=== PATIENT | female | born 1950 | race Caucasian/White ===

== ENCOUNTER 2020-03-06 18:38 | Emergency (ER) | payer MEDICARE, BC, SELFPAY ==
[2020-03-06 18:39] VITALS: BP 181/100; PULSE 102; RESP 16; TEMP 36.6; O2SAT 96; BMI 31.8
[2020-03-06 20:30] LABS: Absolute Lymphocyte Count 3.29 X10^3/uL (0.83-4.51); Absolute Neutrophil Count 4.9 X10^3/uL (2.0-7.7); Basophil# 0.04 X10^3/uL; Basophil% 0.5 % (0-1); Eosinophil# 0.17 X10^3/uL; Eosinophils% 1.9 % (0-5); Hematocrit 45.3 % (37-47); Hemoglobin 14.8 g/dL (12.0-15.0); Lymphocyte # 3.29 X10^3/ul (4.0); Lymphocyte % 37.3 % (19-41); Mean Corp Hgb Conc 32.7 g/dL (32-36); Mean Corpuscular Hgb 26.9 pg (27.0-32.0); Mean Corpuscular Volume 82.2 fL (81-99); Mean Platelet Vol. 9.9 fl (6.2-12.0); Monocyte# 0.44 X10^3/uL; NRBC Flagged by Analyzer 0 % (0-5); Neutrophil # 4.85 X10^3/uL (2.7-7.7); Neutrophil % 55.1 % (47-70); Platelet Count 275 K/mm3 (150-450); RBC Distribution Width CV 13.5 % (11.6-14.6); RBC Distribution Width SD 39.7 fl (35.1-43.9); Red Blood Count 5.51 M/mm3 (4.2-5.4); White Blood Count 8.8 K/mm3 (4.4-11.0)
[2020-03-06 20:40] LABS: Bacteria 0 SEEN /hpf (None Seen); Mucous, Urine 0 SEEN /hpf (<or=2+); Red Blood Cells-Urine 0 SEEN /hpf (0-5); Squamous Epithelial Cells - UA 0 SEEN /hpf (5-10)
[2020-03-06 20:42] LABS: Color, Urine Straw (Yellow); Glucose, Dipstick Normal (Normal); Ketone-Dipstick Negative (Negative); Leukocyte Esterase-Dipstick 100 /ul (Negative); Nitrite-Dipstick Negative (Negative); Occult Blood-Urine Negative /ul (Negative); Protein-Dipstick Negative (Negative); Urine Bilirubin Dipstick Negative (Negative); Urine Clarity Clear (Clear); Urine Urobilinogen Normal (Normal)
[2020-03-06 20:50] LABS: Anion Gap 4 (5-15); BUN 18 mg/dL (7-18); BUN/Creat Ratio 23.5 RATIO (10-20); Calcium,Total 9.1 mg/dL (8.5-10.1); Chloride 107 mmol/L (98-107); Creatinine, Serum 0.76 mg/dL (0.55-1.02); EST Glomerular Filtration Rate 80 mL/min (>60); Est Glom Filt Rate - Afr Amer 97 mL/min (>60); Estimated Creatinine Clearance 47.14 ml/min; Glucose 103 mg/dL (74-106); Potassium 3.6 mmol/L (3.5-5.1); Sodium Level 140 mmol/L (136-145)
--- NOTE | 2020-03-06 20:56 | CT_ITS ---
STUDY: CT ABDOMEN AND PELVIS WITHOUT CONTRAST REASON FOR EXAM: Female, 69 years old. LEFT LOWER ABD AND FLANK PAIN,HX [place] WITH REMOVAL IN PAST RADIATION DOSAGE (If Supplied By Facility): CTDIvol = ( 15.52 ) mGy, DLP = ( 779.26 ) mGycm TECHNIQUE: Transaxial images were obtained from the dome of the diaphragm to the symphysis pubis without oral contrast, and without intravenous contrast. Sagittal and coronal images were reconstructed. Individualized dose optimization techniques were used for this CT. COMPARISON: 03-03-16 FINDINGS: There is minor interstitial thickening in both lower lobes. The visualized portions of the heart are within normal limits. Moderate size hiatal hernia is noted Normal liver. Normal gallbladder and extrahepatic biliary system. Normal spleen. Normal pancreas. Normal bilateral adrenal glands. Normal right kidney. There is left renal pelvocaliectasis and hydroureter without evidence for ureteral calculus. This could be due to recent passage of a stone or mild ureterovesical reflux. Normal visualized stomach. Normal small intestine. Minor diverticular disease of the sigmoid colon without evidence for acute diverticulitis.. No evidence for acute appendicitis. Atherosclerotic changes of the aorta without evidence for aneurysm. Normal inferior vena cava. Normal retroperitoneum. Normal urinary bladder. Uterus is deviated towards the right. Postsurgical changes status post tubal ligation. Tiny fat-containing umbilical hernia.. Lumbar spine demonstrates degenerative changes CT/Abdomen/Pelvis without Cont IMPRESSION: Mild left renal pelvocaliectasis and hydroureter without evidence for clot in calculus possibly due to recent passage of a stone or ureterovesical reflux.. Minor diverticular changes of the sigmoid colon without evidence for acute diverticulitis. Other findings as above Electronically Signed: Dennis Inman MD at 21:29 EDT , Service support ,
[2020-03-06 20:58] LABS: White Blood Cells 0-5 SEEN /hpf (0-5)
[2020-03-06] MEDS: Ondansetron 4 MG/2 ML Vial IV (21:48)
[2020-03-06] MEDS: Ketorolac 30 MG/ML Syringe IV (21:48)
--- NOTE | 2020-03-06 22:27 | ED.VIS.GEN ---
History of Present Illness Chief Complaint: Abd Pain Informant: Patient Narrative: She presents with a left mid abdominal pain. States is very similar to when she has had kidney stones in the past. She has required lithotripsy and ureteral stents with Dr. Mtz. The patient states the pain became pretty significant today. She denies any hematuria. No bowel changes. No fevers. Past Medical History - Allergies and Home Meds Allergies/Adverse Reactions: Allergies erythromycin base Adverse Reaction (Verified 03/06/20 18:41) Diarrhea Primary Care Physician: Brendon Nguyen MD [STAFF PHYSICIAN] - Smoking Status: Former smoker Review of Systems General: Denies: Chills, Fever, Sweats Eyes: Denies: Visual changes - bilaterally, Diplopia ENT: Denies: Rhinorrhea, Sore throat Cardiovascular: Denies: Chest pain, Palpitations Respiratory: Denies: Dyspnea, Cough, Dyspnea on exertion Gastrointestinal: Reports: Abdominal pain. Denies: Nausea, Vomiting, Diarrhea, Melena, Hematochezia Genitourinary: Denies: Dysuria, Hematuria, Frequency Musculoskeletal: Denies: Back pain, Extremity Pain Skin: Denies: Rash, Wounds Neurological: Denies: Headache, Weakness, Numbness Physical Exam Vital Signs/Narrative: Vital Signs Temp Pulse Resp BP Pulse Ox 03/06/20 18:39 97.9 F 102 H 16 181/100 H 96 Inital Vital Signs reviewed: Yes General: Well nourished, Well developed, No Acute Distress Head: Normocephalic, Atraumatic Eyes: Perrl, EOMI ENT: Moist mucous membranes, No rhinorrhea Neck: Supple, Nontender Cardiovascular: Regular rate, Regular rhythm, No murmurs Respiratory: No distress, CTA bilaterally, Chest nontender Abdomen: Soft, Nontender, Nondistended, Normal bowel sounds Back: Nontender, Normal Inspection Extremities: Nontender, No edema Skin: Normal color, No rash Neurological: Alert, Oriented x3, Cranial nerves II-XII grossly intact, Normal Strength, Normal Sensation Psychological: Normal affect, Normal Mood Diagnostic/Tx/Re-eval Clinical Impression(s) from Imaging Studies Abdomen/Pelvis CT 03/06/20 20:56 IMPRESSION: Mild left renal pelvocaliectasis and hydroureter without evidence for clot in calculus possibly due to recent passage of a stone or ureterovesical reflux.. Minor diverticular changes of the sigmoid colon without evidence for acute diverticulitis. Other findings as above Electronically Signed: Dennis Inman MD at 21:29 EDT , Service support , Laboratory Last Values WBC 8.8 K/mm3 (4.4-11.0) 03/06/20 20: RBC 5.51 M/mm3 (4.2-5.4) H 03/06/20 20: Hgb 14.8 g/dL (12.0-15.0) 03/06/20 20: Hct 45.3 % (37-47) 03/06/20: MCV 82.2 fL (81-99) 03/06/20: MCH 26.9 pg (27.0-32.0) L 03/06/20: MCHC 32.7 g/dL (32-36) 03/06/20: RDW Std Deviation 39.7 fl (35.1-43.9) 03/06/20: RDW Coeff of Nasrin 13.5 % (11.6-14.6) 03/06/20: Plt Count 275 K/mm3 (150-450) 03/06/20: MPV 9.9 fl (6.2-12.0) 03/06/20 20: Immature Gran % (Auto) 0.200 % (0.0-0.9) 03/06/20: Neut % (Auto) 55.1 % (47-70) 03/06/20 20: Lymph % (Auto) 37.3 % (19-41) 03/06/20: [place] % (Auto) 5.0 % (0-10) 03/06/20: Eos % (Auto) 1.9 % (0-5) 03/06/20: Baso % (Auto) 0.5 % (0-1) 03/06/20 20: Absolute Neuts (auto) 4.9 X10^3/uL (2.0-7.7) 03/06/20 20: Absolute Lymphs (auto) 3.29 X10^3/uL (0.83-4.51) 03/06/20 20: Nucleated RBC % 0 % (0-5) 03/06/20 20: Sodium 140 mmol/L (136-145) 03/06/20 20: Potassium 3.6 mmol/L (3.5-5.1) 03/06/20 20: Chloride 107 mmol/L (98-107) 03/06/20 20: Carbon Dioxide 29.0 mmol/L (21.0-32.0) 03/06/20 20: Anion Gap 4 (5-15) L 03/06/20 20: BUN 18 mg/dL (7-18) 03/06/20: Creatinine 0.76 mg/dL (0.55-1.02) 03/06/20 20: Estim Creat Clear Calc 47.14 ml/min 03/06/20 20: Est GFR (MDRD) Af Amer 97 mL/min (>60) 03/06/20 20: Est GFR (MDRD) Non-Af 80 mL/min (>60) 03/06/20 20: BUN/Creatinine Ratio 23.5 RATIO (10-20) H 03/06/20 20: Glucose 103 mg/dL (74-106) 03/06/20: Calcium 9.1 mg/dL (8.5-10.1) 03/06/20 20: Urine Color Straw (Yellow) 03/06/20 20: Urine Clarity Clear (Clear) 03/06/20: Urine pH 6.0 (5.0 - 8.0) 03/06/20: Ur Specific [place] 1.010 (1.002-1.030) 03/06/20 20: Urine Protein Negative mg/dl (Negative) 03/06/20 Urine Glucose (UA) Normal mg/dl (Normal) 03/06/20 Urine Ketones Negative mg/dl (Negative) 03/06/20 20: Urine Occult Blood Negative /ul (Negative) 03/06/20 20: Urine Nitrite Negative (Negative) 03/06/20: Urine Bilirubin Negative mg/dL (Negative) 03/06/20 Urine Urobilinogen Normal mg/dl (Normal) 03/06/20 20:27 Ur Leukocyte Esterase 100 /ul (Negative) H 03/06/20 20:27 Urine RBC 0 SEEN /hpf (0-5) 03/06/20 20:27 Urine WBC 0-5 SEEN /hpf (0-5) 03/06/20 20:27 Ur Squamous Epith Cells 0 SEEN /hpf (5-10) 03/06/20 20:27 Urine Bacteria 0 SEEN /hpf (None Seen) 03/06/20 20:27 Urine Mucus 0 SEEN /hpf (<or=2+) 03/06/20 20:27 - Medical Decision Making There is evidence of hydro-nephrosis and hydroureter on the left. We talked about possible etiologies of this including a recently passed stone as well as ureteral stricture. I will refer the patient have pain medication. She received a dose of Toradol here and does not wish to have her prescriptions filled in the hospital. Patient to follow-up with urology if not improving ED Disposition - Plan for ED Patient: Disposition: Home or Assisted Living Diagnosis: Hydronephrosis, Left sided abdominal pain Instructions: ED RENAL STONE Passed Prescriptions: Hydrocodone Bitart/Apap 5-325 [[place] 5MG-325MG] 1 tab PO Q6H PRN PRN 3 Days #12 tab PRN Reason: Pain Transmission Status: Received by ELOY CRUZ RD Ondansetron [Zofran Odt] 4 mg PO Q8H PRN PRN #10 tab PRN Reason: Nausea Transmission Status: Received by ELOY CRUZ RD Referrals: Brendon Nguyen MD [STAFF PHYSICIAN] -
[2020-03-06 22:59] VITALS: BP 145/75; PULSE 87; RESP 17; O2SAT 97
== END 2020-03-06 23:00 | disposition home or self-care (01) ==
PROVIDERS: Emergency Provider Emergency Medicine; PCP Family Medicine
DX: N13.30 Unspecified hydronephrosis (principal); R10.9 Unspecified abdominal pain; Z87.442 Personal history of urinary calculi; Z87.891 Personal history of nicotine dependence
CPT/HCPCS: 74176; 80048; 81001; 85025; 96374; 96375; 99283; A4216; J2405

== ENCOUNTER → 2020-04-11 13:43 | Outpatient (CLI) | payer MEDICARE, BC, SELFPAY ==
--- NOTE | 2020-04-11 13:44 | US_ITS ---
STUDY: RENAL ULTRASOUND - COMPLETE REASON FOR EXAM: Female, 69 years old. Left hydro , kidney stones TECHNIQUE: Ultrasound evaluation of the kidneys was performed with real-time and static maurer-scale imaging. COMPARISON: None. FINDINGS: RIGHT KIDNEY: Normal location of the right kidney, which is normal in size. The right kidney measures 11.1 cm x 4.7 cm x 5.2 cm. There is a normal cortex of the right kidney. The renal cortex measures 1.1 cm. There is no right renal mass or cyst. There are no right renal calculi. There is no right hydronephrosis. DISTAL RIGHT URETER: There is non-visualization of the distal right ureter. There is no demonstrated right ureterovesical junction calculus. There is a visualized right ureteral jet. LEFT KIDNEY: Normal location of the left kidney, which is normal in size. The left kidney measures 11.9 cm x 5 cm x 6 cm. There is a normal cortex of the left kidney. The renal cortex measures 1.5 cm. There is evidence of a left pararenal cysts. The largest measures 1.5 sinus by 1.2 cm x 0.9 cm. There are no left renal calculi. There is no left hydronephrosis. DISTAL LEFT URETER: There is non-visualization of the distal left ureter. There is no demonstrated left ureterovesical junction calculus. There is a visualized left ureteral jet. BLADDER: The distended urinary bladder has a volume of 286 ml. There is a normal wall thickness of the distended urinary bladder. There is no demonstrated mass within the urinary bladder. There are no demonstrated bladder calculi. US/Kidney and Bladder IMPRESSION: Small left parapelvic renal cysts.. Electronically Signed: Rustam Pritchard, at 14:42 EDT , Service support ,
== END ==
PROVIDERS: PCP Family Medicine; Referring Provider Urology; Visit Provider Urology
DX: N13.30 Unspecified hydronephrosis (principal); N20.0 Calculus of kidney
CPT/HCPCS: 76770

== ENCOUNTER 2020-05-31 15:02 | Emergency (ER) | payer MEDICARE, BC, SELFPAY ==
[2020-05-31 15:05] VITALS: BP 158/120; PULSE 109; RESP 16; TEMP 36.1; O2SAT 96; BMI 31.7
[2020-05-31 15:07] VITALS: BMI 32.3
--- NOTE | 2020-05-31 16:16 | EKG12_ITS ---
Test Reason : Blood Pressure : / mmHG Vent. Rate : 088 BPM Atrial Rate : 088 BPM P-R Int : 120 ms QRS Dur : 082 ms QT Int : 356 ms P-R-T Axes : 028 045 053 degrees QTc Int : 430 ms Normal sinus rhythm Normal ECG Confirmed by KIM DANIEL, JADE ([id number]), news editor FABRICE ALVAREZ ([id number]) on 06/05/2020 12:28:22 PM Referred By: PC Confirmed By:JADE ALVAREZ MD
--- NOTE | 2020-05-31 16:16 | CT_ITS ---
STUDY: CT BRAIN WITHOUT CONTRAST REASON FOR EXAM: Female, 69 years old. SENT BY EYE DR FOR POSSIBLE TIA, VISION LOSS IN BOTH EYES, LEFT HEMISPHERE RADIATION DOSAGE (If Supplied By Facility): CTDIvol = ( 44.99 ) mGy, DLP = ( 779.24 ) mGycm TECHNIQUE: Transaxial CT imaging of the brain was performed without administration of intravenous contrast material. Individualized dose optimization techniques were used for this CT. COMPARISON: No relevant priors. FINDINGS: Normal soft tissue structures. Normal calvarium. Normal size ventricles and extra-axial spaces for the patient''s age. Normal white matter tracts of the cerebral hemispheres. Normal basal ganglia and thalami. Normal brainstem. Normal cerebellum. There is no intracranial hemorrhage. There are no findings of an acute ischemic infarction. Normal visualized paranasal sinuses. CT/Brain/Head without Contrast IMPRESSION: Normal unenhanced CT scan of the brain. Electronically Signed: Sean Garcia MD at 17:05 EDT Tel , Service support ,
--- NOTE | 2020-05-31 16:18 | ED.VISSUMM ---
- ER Visit Summary Date of Service: 05/31/20 Chief Complaint: Visual field loss History of Present Illness: The patient is a 69 F who presents with an episode of loss of half of her vision that occurred yesterday. Patient states she was watching TV when the left half of her vision went black. Patient states she was unable to see anything on the left half of her vision out of both eyes. Patient states this lasted approximate 10 to 15 minutes and then resolved. Patient saw her technology education instructor who felt that it was a neurologic problem and not an ophthalmologic problem. Patient states that her technology education instructor called her primary care physician to arrange for follow-up care. Patient states her primary care physician did not call her today and when she called his office he was out of the office for the day. Patient then came to the emergency department for further evaluation. Physical Examination: Vital signs are stable except for an elevated blood pressure of 150/120 and a mild tachycardia of 109. Patient is afebrile. Patient is in no acute distress. Pupils are equal, round, and reactive to light bilaterally. Extraocular muscles are intact. Oral mucosa is pink and moist. Neck is supple. Trachea is midline. There is no JVD noted. Heart was regular rate and rhythm. Lungs are clear and equal bilaterally. Abdomen is soft. Bowel sounds are normal. There is no tenderness. There is no rebound or guarding noted. Skin is warm dry. Cranial nerves II through XII are intact. There are no focal motor or sensory deficits noted. Extremities are intact. There is no calf tenderness or edema. Test Results: EKG shows a normal sinus rhythm with a rate of 88. There are no acute ST or T wave changes. CBC and comprehensive metabolic profile were essentially within normal limits. PT with INR and PTT were normal. Urinalysis does not show any evidence of urinary tract infection. Portable chest x-ray was obtained. There is no acute cardiopulmonary process. CT scan of the brain was obtained. There is no acute intracranial abnormality. These were interpreted by the radiologist and reviewed by myself. Emergency Department Course and Treatment: Patient remained asymptomatic during her emergency department stay. Patient was advised of her findings. Patient was instructed to follow-up with her primary care physician in 3 to 5 days. Patient understood and was agreeable with the plan. All questions were answered. Disposition: Discharge home Impression: 1. Transient ischemic attack This note was generated with AquaMost[employer] software. It may contain incorrect words, spelling, and punctuation that were not noted in review of the chart prior to signing ED Disposition - Plan for ED Patient: Disposition: Home or Assisted Living Diagnosis: TIA (transient ischemic attack) Instructions: ED TRANSIENT ISCHEMIC ATTACK Referrals: Naren Ruffin III, MD [Primary Care Provider] - 3-5 Days Additional Instructions: Continue to take aspirin daily until you follow-up with your primary care physician
--- NOTE | 2020-05-31 16:26 | RAD_ITS ---
STUDY: X-RAY CHEST REASON FOR EXAM: Female, 69 years old. POSSIBLE TIA. LOSS OF VISION FOR 10-15 MINUTES. TECHNIQUE: Single AP portable view of the chest. COMPARISON: None. FINDINGS: The lungs are clear and expanded. There is no demonstrated pleural abnormality. Normal size heart. Normal mediastinum and thai. Normal visualized pulmonary arteries. Normal visualized aortic arch and descending thoracic aorta. Normal visualized thoracic spine. Normal visualized ribs, clavicles, and shoulders. There is no demonstrated abnormality of the visualized soft tissue structures of the upper abdomen. RAD/Chest 1 View (Portable) IMPRESSION: Normal x-ray examination of the chest. Electronically Signed: Sean Garcia MD at 16:43 EDT Tel , Service support ,
[2020-05-31 16:38] LABS: Absolute Lymphocyte Count 2.23 X10^3/uL (0.83-4.51); Absolute Neutrophil Count 5.2 X10^3/uL (2.0-7.7); Basophil# 0.07 X10^3/uL; Basophil% 0.9 % (0-1); Eosinophil# 0.12 X10^3/uL; Eosinophils% 1.5 % (0-5); Hematocrit 44.8 % (37-47); Hemoglobin 14.7 g/dL (12.0-15.0); Lymphocyte # 2.23 X10^3/ul (4.0); Lymphocyte % 27.8 % (19-41); Mean Corp Hgb Conc 32.8 g/dL (32-36); Mean Corpuscular Volume 82.2 fL (81-99); Mean Platelet Vol. 10.3 fl (6.2-12.0); Monocyte# 0.41 X10^3/uL; Monocyte% 5.1 % (0-10); NRBC Flagged by Analyzer 0 % (0-5); Neutrophil # 5.16 X10^3/uL (2.7-7.7); Neutrophil % 64.5 % (47-70); Platelet Count 284 K/mm3 (150-450); RBC Distribution Width CV 13.4 % (11.6-14.6); RBC Distribution Width SD 39.2 fl (35.1-43.9); Red Blood Count 5.45 M/mm3 (4.2-5.4)
[2020-05-31 16:47] LABS: Bacteria 0 SEEN /hpf (None Seen); Mucous, Urine 0 SEEN /hpf (<or=2+); Red Blood Cells-Urine 0 SEEN /hpf (0-5); Squamous Epithelial Cells - UA 0 SEEN /hpf (5-10)
[2020-05-31 16:51] LABS: ALB/GLOB Ratio 1.2 RATIO (0.9-2.4); AST(SGOT) 21 U/L (15-37); Alanine Aminotransfer ALT/SGPT 36 U/L (13-56); Albumin, Serum 4.2 g/dL (3.2-5.0); Alkaline Phosphatase 84 U/L (45-117); Anion Gap 4 (5-15); BUN 21 mg/dL (7-18); BUN/Creat Ratio 18.4 RATIO (10-20); Calcium,Total 9.2 mg/dL (8.5-10.1); Chloride 107 mmol/L (98-107); Creatinine, Serum 1.14 mg/dL (0.55-1.02); EST Glomerular Filtration Rate 51 mL/min (>60); Est Glom Filt Rate - Afr Amer 61 mL/min (>60); Estimated Creatinine Clearance 41.35 ml/min; Globulin 3.5 g/dL (2.2-4.2); Glucose 128 mg/dL (74-106); International Normalized Ratio 0.9; Protein, Total 7.7 g/dL (6.4-8.2); Prothrombin Time (Protime)PT. 11.7 SECONDS (11.7-14.9); Sodium Level 141 mmol/L (136-145)
[2020-05-31 16:52] LABS: Partial Thromboplast Time 24.8 Seconds (24.1-36.2)
[2020-05-31 16:54] LABS: Color, Urine Yellow (Yellow); Glucose, Dipstick Normal (Normal); Ketone-Dipstick Negative (Negative); Leukocyte Esterase-Dipstick 25 /ul (Negative); Nitrite-Dipstick Negative (Negative); Occult Blood-Urine Negative /ul (Negative); Protein-Dipstick Negative (Negative); Urine Bilirubin Dipstick Negative (Negative); Urine Clarity Clear (Clear); Urine Urobilinogen Normal (Normal)
[2020-05-31 17:02] VITALS: BP 164/83; PULSE 90; RESP 19; O2SAT 95
[2020-05-31 17:03] LABS: White Blood Cells 0-5 SEEN /hpf (0-5)
[2020-05-31 18:16] VITALS: BP 148/75; PULSE 71; RESP 16; O2SAT 97
== END 2020-05-31 18:17 | disposition home or self-care (01) ==
PROVIDERS: Emergency Provider Emergency Medicine; PCP Family Medicine
DX: G45.9 Transient cerebral ischemic attack, unspecified (principal)
CPT/HCPCS: 70450; 71045; 80053; 81001; 84484; 85025; 85610; 85730; 93005; 99283; A4216

== ENCOUNTER 2020-10-12 09:32 | Outpatient (RCR) | payer MEDICARE, BC, SELFPAY ==
[2020-10-12] MEDS: COVID-19 VACC, MRNA(PFIZER)/PF 30 MCG/0.3 ML SYRINGE IM (18:46)
[2020-11-02] MEDS: COVID-19 VACC, MRNA(PFIZER)/PF 30 MCG/0.3 ML SYRINGE IM (18:16)
== END 2021-01-16 23:59 ==
LOC: IMMUN 09:32
PROVIDERS: PCP Family Medicine; Visit Provider Family Medicine
DX: Z23 Encounter for immunization (principal)
CPT/HCPCS: 0001A; 0002A; 91300

== ENCOUNTER → 2021-04-13 12:26 | Outpatient (CLI) | payer MEDICARE, BC, SELFPAY ==
--- NOTE | 2021-04-13 12:33 | RAD_ITS ---
INDICATION: KIDNEY CALC EXAMINATION/TECHNIQUE: X-RAY - XR Abdomen 1 View COMPARISON: None FINDINGS: BOWEL GAS PATTERN: Non-obstructive. No bowel or stomach distention. Scattered stool visualized in the bowel. FREE AIR: Not assessed on a single supine view. ORGANOMEGALY: Not seen. CALCIFICATIONS: No abnormal calcifications observed. Stool filled loops of bowel superimposed over the renal beds Limited evaluation. LOWER CHEST: No acute pathology. BONES AND SOFT TISSUES: No acute pathology. RAD/Abdomen Single View IMPRESSION: Limited evaluation, no calcifications visualized. Non-obstructive bowel gas pattern. Electronically Signed: Eliseo Hodges MD at 14:02 EDT Tel , Service support ,
== END ==
PROVIDERS: PCP Family Medicine; Referring Provider Urology; Visit Provider Urology
DX: N20.0 Calculus of kidney (principal)
CPT/HCPCS: 74018

== ENCOUNTER → 2022-04-22 | Outpatient (CLI) | payer MEDICARE, BC, SELFPAY ==
--- NOTE | 2022-05-14 08:43 | PFT_ITS ---
INTRODUCTION: The patient is a 71-year-old female who presents for pulmonary function studies secondary to a diagnosis of cough. Respiratory therapy reported good patient effort. Bronchodilators were used during testing. INTERPRETATION: Forced expiration spirometry demonstrates no evidence of a large airways obstructive ventilatory defect. There was no significant response to aero solized bronchodilators. Spirograms are of good quality and plateau normally. The respiratory flow volume loop is normal. Body plethysmography was performed and revealed a decreased TLC to 3.96 L, 80% of predicted, indicative of a mild restrictive ventilatory impairment. Diffusing capacity by single breath CO is within normal limits. IMPRESSION: Mild restrictive ventilatory impairment with preserved diffusing capacity. No significant bronchodilator response was noted.
== END | disposition home or self-care (01) ==
LOC: PSN 06:44
PROVIDERS: PCP Family Medicine; Referring Provider Family Medicine; Visit Provider Family Medicine
DX: R05.3 Chronic cough (principal)
CPT/HCPCS: 94060; 94726; 94729

== ENCOUNTER → 2022-05-01 | Outpatient (CLI) | payer MEDICARE, BC, SELFPAY ==
--- NOTE | 2022-05-01 13:45 | ECHOCS_ITS ---
Reason For Study: DYSPNEA Procedure This was a 2D Doppler, Color Flow transthoracic echocardiogram. The study was technically difficult. Contrast injection was performed. Exam performed in department. Left Ventricle Normal LV size. Left ventricular systolic function is normal. The estimated ejection fraction is 65 %. No evidence for diastolic dysfunction. No regional wall motion abnormalities noted. Right Ventricle Normal RV size. Normal systolic function. Atria Normal left atrium. Normal right atrium. No doppler evidence for ASD. Bubble contrast study negative for right to left interatrial shunt. Mitral Valve There is no mitral annular calcification. Normal mitral valve. Trivial mitral valve insufficiency. Tricuspid Valve Normal tricuspid valve. Trivial tricuspid valve insufficiency. Right ventricular systolic pressure estimated to be 25 mmHg. Aortic Valve Trisinus/trileaflet aortic valve. Mild focal aortic valve calcification. Pulmonic Valve The pulmonic valve is not well visualized. Trivial pulmonic valve insufficiency. Great Vessels Normal sized aortic root. Pericardium/Pleural No pericardial effusion. Medication 22 gauge I.V. with prn adaptor inserted into right arm. Diluted definity 4ml given slow IV push to enhance endocardial definition. Performed a rapid injection of agitated mix of 9 cc saline and 1cc air to assess for atrial septal defect. MMode/2D Measurements & Calculations LVIDd: 4.0 cm IVSd: 0.69 cm Ao root diam: 3.2 cm LVIDs: 2.6 cm LVPWd: 0.78 cm RVDd: 2.9 cm FS: 34.4 % LAV(MOD-bp): 31.2 ml LVAd ap4: 20.9 cm2 SV(MOD-sp4): 33.5 ml LAV(MOD-bp) Indexed: 16.5 ml/m2 LVLd ap4: 6.4 cm LAV(MOD-sp2): 28.6 ml EDV(MOD-sp4): 54.6 ml LAV(MOD-sp4): 28.8 ml EDV(sp4-el): 57.8 ml LVAs ap4: 11.2 cm2 LVLs ap4: 5.1 cm ESV(MOD-sp4): 21.2 ml ESV(sp4-el): 20.6 ml EF(MOD-sp4): 61.2 % EF(sp4-el): 64.3 % SV(sp4-el): 37.2 ml LA A4 area: 12.1 cm2 LA dimension(2D): 2.7 cm RA A4 area: 11.1 cm2 Time Measurements MV dec time: 0.23 sec Doppler Measurements & Calculations MV E max booker: 80.2 cm/sec Lat Peak E' Booker: 7.3 cm/sec Med Peak E' Booker: 6.0 cm/sec MV A max booker: 106.1 cm/sec E/E' lat: 11.0 E/E' med: 13.3 MV E/A: 0.76 Ao V2 max: 115.8 cm/sec LV V1 max: 103.5 cm/sec PA V2 max: 67.2 cm/sec Ao max P.4 mmHg LV V1 max P.3 mmHg TR max booker: 234.4 cm/sec TR max P.0 mmHg ECHO/Echo Complete W/ Contrast Interpretation Summary The study was technically difficult. Contrast injection was performed. Left ventricular systolic function is normal. The estimated ejection fraction is 65 %. Trivial mitral valve insufficiency. Trivial tricuspid valve insufficiency. Mild focal aortic valve calcification. Trivial pulmonic valve insufficiency. Right ventricular systolic pressure estimated to be 25 mmHg. No evidence for diastolic dysfunction. Ordering Physician: Sofia Santos Referring Physician: Sofia Santos Performed By: Patti Guajardo RDCS
== END | disposition home or self-care (01) ==
LOC: CVS 13:44
PROVIDERS: PCP Family Medicine; Referring Provider Family Medicine; Visit Provider Family Medicine
DX: R06.09 Other forms of dyspnea (principal)
CPT/HCPCS: 93306; Q9957; A4216; C8929

== ENCOUNTER → 2022-06-20 | Outpatient (CLI) | payer MEDICARE, BC, SELFPAY ==
[2022-06-20 12:43] LABS: Absolute Lymphocyte Count 2.18 X10^3/uL (0.83-4.51); Basophil# 0.05 X10^3/uL; Basophil% 0.7 % (0-1); Eosinophil# 0.15 X10^3/uL; Eosinophils% 2.2 % (0-5); Hematocrit 43.6 % (37-47); Hemoglobin 13.6 g/dL (12.0-15.0); Lymphocyte # 2.18 X10^3/ul (0.83-4.51); Mean Corp Hgb Conc 31.2 g/dL (32-36); Mean Corpuscular Hgb 25.6 pg (27.0-32.0); Mean Corpuscular Volume 82.1 fL (81-99); Mean Platelet Vol. 10.8 fl (6.2-12.0); Monocyte# 0.39 X10^3/uL; Monocyte% 5.7 % (0-10); NRBC Flagged by Analyzer 0 % (0-5); Neutrophil # 4.02 X10^3/uL (2.7-7.7); Neutrophil % 59.1 % (47-70); Platelet Count 257 K/mm3 (150-450); RBC Distribution Width CV 14.6 % (11.6-14.6); RBC Distribution Width SD 43.1 fl (35.1-43.9); Red Blood Count 5.31 M/mm3 (4.2-5.4); White Blood Count 6.8 K/mm3 (4.4-11.0)
[2022-06-20 13:16] LABS: ALB/GLOB Ratio 1.2 RATIO (0.9-2.4); AST(SGOT) 28 U/L (15-37); Alanine Aminotransfer ALT/SGPT 69 U/L (13-56); Albumin, Serum 4.1 g/dL (3.2-5.0); Alkaline Phosphatase 82 U/L (45-117); Anion Gap 6 (5-15); BUN 16 mg/dL (7-18); BUN/Creat Ratio 19.3 RATIO (10-20); Chloride 107 mmol/L (98-107); Cholesterol 188 mg/dL (200); Creatinine, Serum 0.83 mg/dL (0.55-1.02); EST Glomerular Filtration Rate 73 mL/min (>60); Est Glom Filt Rate - Afr Amer 88 mL/min (>60); Globulin 3.5 g/dL (2.2-4.2); Glucose 111 mg/dL (74-106); High Density Lipoprotein 53 mg/dL; Potassium 3.8 mmol/L (3.5-5.1); Protein, Total 7.6 g/dL (6.4-8.2); Sodium Level 141 mmol/L (136-145); Triglycerides 146 mg/dL; Very Low Density Lipoprotein 29 mg/dL (5-40); Vitamin D,25 Hydroxy 24.7 ng/mL
[2022-06-20 13:22] LABS: Hemoglobin A1c 6.1 % (3.8-5.6)
== END | disposition home or self-care (01) ==
LOC: BFHLAB 09:38
PROVIDERS: PCP Family Medicine; Visit Provider Family Medicine
DX: Z00.00 Encounter for general adult medical examination without abnormal findings (principal); R73.03 Prediabetes; E78.5 Hyperlipidemia, unspecified; I10 Essential (primary) hypertension; M85.80 Other specified disorders of bone density and structure, unspecified site; E55.9 Vitamin D deficiency, unspecified
CPT/HCPCS: 36415; 80053; 80061; 82306; 83036; 85025

== ENCOUNTER → 2022-07-02 | Outpatient (CLI) | payer MEDICARE, BC, SELFPAY ==
--- NOTE | 2022-07-02 07:09 | BI_ITS ---
MAMMOGRAPHY - BILATERAL SCREENING REASON FOR EXAM: Female, 71 years old. Routine annual screening examination. PERTINENT HISTORY: Non-contributory. TECHNIQUE: Digital bilateral breast igor (3D mammographic acquisition) in the CC and MLO projections. 2-D mediolateral oblique (MLO) and craniocaudad (CC) views of both breasts were obtained. CAD: Full Field Digital Mammography with Computer Added Detection was performed. COMPARISON: Mammogram from outside hospital from 08/18/2020, 10/02/2017. FINDINGS: Breast Composition: There are scattered areas of fibroglandular density. There are no dominant masses or suspicious calcifications. Stable small benign-appearing bilateral axillary lymph nodes. No other significant abnormalities are identified. There has been no significant change since the prior study. BI/SCRN MAMM (CAD)W/IGOR BILAT IMPRESSION: Stable bilateral screening mammogram. Yearly follow-up mammogram recommended. (A) ASSESSMENT CATEGORY: BIRADS Category 2: Benign. A letter regarding these results will be sent to the patient by the facility within 30 days. Approximately 10% of breast cancers are not detected by mammography. A normal mammogram should not delay biopsy of a clinically suspicious abnormality. Electronically Signed: Dez Navarrete, at 16:36 EST ,
== END | disposition home or self-care (01) ==
LOC: OPBI 07:07
PROVIDERS: PCP Family Medicine; Visit Provider Family Medicine
DX: Z12.31 Encounter for screening mammogram for malignant neoplasm of breast (principal)
CPT/HCPCS: 77063; 77067

== ENCOUNTER → 2023-02-25 | Outpatient (CLI) | payer MEDICARE, BC, SELFPAY ==
--- NOTE | 2023-02-25 07:50 | US_ITS ---
INDICATION: RUQ PAIN/EPIGASTRIC PAIN/BLOATING/NAUSEA/HEARTBURN EXAMINATION: Ultrasound US Abdomen Limited (quadrant) TECHNIQUE: Constantino scale and color doppler imaging was performed of the right upper quadrant. COMPARISON: To AP supine plain film views of the abdomen and pelvis April 13, 2021; CT abdomen and pelvis without contrast March 06, 2020 FINDINGS: LIVER: There is normal echotexture. Liver size 16.6 cm. No focal hepatic lesion. There is no free fluid. GALLBLADDER AND BILIARY TREE: No shadowing gallstone, pericholecystic fluid or gallbladder wall thickening is demonstrated. The proximal common bile duct measures 6.2 mm, which is within normal limits for the patient''s age. Sonographic Laird''s sign: Negative. PANCREAS: No focal abnormality is demonstrated in the pancreas. No pancreatic ductal dilatation. RIGHT KIDNEY: 11.42 x 4.79 x 5.50 cm. Cortical thickness is 1.23 cm. No hydronephrosis. A few well-defined, rounded, hypoechoic cysts are seen in the sinus fat at the mid to lower pole. These measure 1.0 x 0.9 x 0.9 cm, 1.3 x 0.9 x 1.1 cm, and 1.2 x 1.3 x 1.0 cm. US/Abdomen Limited IMPRESSION: No acute sonographic abnormality is demonstrated in the right upper quadrant. Incidental note of 3 small simple appearing cysts in the lower pole of the right kidney. Electronically Signed: Julio Greco MD at 8:59 EDT Reading Location ID and State: [id number] / Unknown , Service support ,
== END | disposition home or self-care (01) ==
LOC: US 07:44
PROVIDERS: PCP Family Medicine; Referring Provider Nurse Practitioner Family; Visit Provider Nurse Practitioner Family
DX: R10.11 Right upper quadrant pain (principal); R10.13 Epigastric pain; R14.0 Abdominal distension (gaseous); R11.0 Nausea
CPT/HCPCS: 76705

== ENCOUNTER 2023-04-01 06:24 | Day surgery (SDC) | payer MEDICARE, BC, SELFPAY ==
--- NOTE | 2023-04-01 | GASB_PTH ---
PATIENT: CHERYL CORTEZ LOC: EN U#:[id number] AGE/SX: 72/F ROOM: RE04/01/[address]: Dr. Catalino Ruffin MD : 1950 BED: DIS: 04/01/2023 SPEC #: [id number] RECD: 04/01/23 11:29 STATUS: SONI BRADLEY #: [id number] KEILA: 04/01/23 00:[address]: Catalino Ruffin DEPT: SURGICAL PATHOLOGY RECD BY: Jimmy Willoughby ENTERED: 04/01/23 11:30 SP TYPE: Gastric Bx OTHR DR: Dr. Sofia Santos MD Tissues: A - Duodenum, NOS B - Gastric mucous membrane C - Stomach, NOS D - Gastric mucous membrane E - Esophageal mucous membrane Procedures: Special Stain Group II Surgery Specimen Level IV Alcian Blue/PAS (control) HEADER OPERATION: EGD with biopsy PRE-OP DIAGNOSIS: Abdominal pain TISSUE SUBMITTED: A - Duodenum biopsy, B - Antrum for H. pylori and path, C - Greater curvature polyp, D - EG junction biopsy, E - Mid esophagus biopsy MICROSCOPIC DIAGNOSIS A. Duodenum, biopsy: No pathologic change. B. Antrum, biopsy: Chronic gastritis. C. Greater curvature polyp, biopsy: Benign gastric mucosa. D. EG junction, biopsy: Chronic inflammation. No evidence of Jones's esophagus See Comment. E. Mid esophagus, biopsy: No pathologic change. AM/am 04/02/23 COMMENT B. The results of immunohistochemistry for Helicobacter pylori will be reported separately ([id number]). D. Alcian blue/PAS stain with matched control is negative. MICROSCOPIC DESCRIPTION Slides are reviewed. GROSS DESCRIPTION A - Received in fixative is one container labeled with the patient's name and designated duodenum biopsy. The specimen consists of one irregular fragment of light holly soft tissue that measures 0.5 x 0.3 x 0.1 cm. The specimen is totally submitted in one cassette. B - Received in fixative is one container labeled with the patient's name and designated gastric antrum. The specimen consists of one irregular fragment of light holly soft tissue that measures 0.5 x 0.3 x 0.1 cm. The specimen is totally submitted in one cassette. C - Received in fixative is one container labeled with the patient's name and designated greater curvature polyp. The specimen consists of one irregular fragment of light holly soft tissue that measures 0.5 x 0.3 x 0.1 cm. The specimen is totally submitted in one cassette. D - Received in fixative is one container labeled with the patient's name and designated EG junction biopsy. The specimen consists of multiple irregular fragments of light holly soft tissue that in aggregate measure 0.6 x 0.5 x 0.1 cm. The specimen is totally submitted in one cassette. E - Received in fixative is one container labeled with the patient's name and designated mid esophagus biopsy. The specimen consists of one irregular fragment of light holly soft tissue that measures 0.5 x 0.3 x 0.1 cm. The specimen is totally submitted in one cassette. / AM:miracle 04/01/2023 TC:3 CPT: 37453 x5 , 19760
[2023-04-01 06:54] VITALS: BP 146/81; PULSE 90; RESP 18; TEMP 36.4; O2SAT 99; BMI 31.6
--- NOTE | 2023-04-01 06:56 | HP.PCM_ITS ---
History and Physical Date of Admission: 04/01/23 Visit Reasons: UPPER SCOPE FOR EPIGASTRIC PAIN/BLOATING Chief Complaint: upper scope for epigastric pain/bloating Is patient in pain?: No Allergies tomato Allergy (Verified 03/24/23 14:04) Hiveswheat Allergy (Verified 03/24/23 14:04) Othererythromycin base Adverse Reaction (Verified 03/24/23 14:04) Diarrhea Medications aspirin 81 mg tablet,delayed release 81 mg PO DAILY 03/24/23 [History Confirmed 03/24/23] lisinopril 5 mg tablet 5 mg PO DAILY 03/24/23 [History Confirmed 03/24/23] omeprazole 20 mg capsule,delayed release 20 mg PO DAILY PRN 03/24/23 [History Confirmed 03/24/23] rosuvastatin 10 mg tablet 10 mg PO .3x/week 03/24/23 [History Confirmed 03/24/23] sucralfate 1 gram tablet 1 g PO QACHS 03/24/23 [History Confirmed 03/24/23] PFSH Medical History (Updated 03/24/23 @ 14:[address] Catalino Ruffin MD) TIA (transient ischemic attack) Family History (Updated 03/24/23 @ 14:02 by Karma Tai) Mother Diabetes Heart disease Kidney diseaseFather Heart disease CVA (cerebral vascular accident) Social History (Updated 03/24/23 @ 14:02 by Karma Tai) Smoking Status: Former smoker alcohol intake: never substance use type: does not use HPI HPI HPI: [id number] female is being referred by Dr. Desmond Hennessy for surgical consultation regarding epigastric pain and a written compromise surgical consult recommendations will return to him. It is of note that the patient's most recent colonoscopy was 2017 with internal recommendation at 10 years. The patient current concerns are intermittent mid epigastric pain bloating nausea and diarrhea. Carafate does improve her situation. She has been on that 2 weeks prior to her appointment with Dr. Hennessy. She chronically takes omeprazole 20 mg daily. Patient complains of a constant epigastric pain. Worse sometimes better with an empty stomach. She has been on sucralfate recently with some improvement but the lack of complete eradication. In the past she has been on chronic omeprazole therapy 20 mg daily. No bright red blood per rectum or melena. Occasional mucus. 4 pound weight decrease. She states that she had a gallbladder ultrasound on February 25, 2023 and I reviewed those images. Pancreas was felt to be normal. No gallstones or pericholecystic fluid or gallbladder wall thickening was identified. ROS General General: Yes fatigue; No weight change, appetite, colon cancer, breast cancer or weakness HEENT HEENT: No difficulty swallowing, eye injury, eye surgery, swollen glands or hoarseness Endo Endocrine: No thyroid disease, diabetes mellitus, thyroid cancer, Hair loss, heat intolerance or cold intolerance Skin Skin: No rash or changing moles Musc Musculoskeletal: No back problems, arthritis, rheumatoid arthritis, gout or joint pain Cardio Cardiovascular: Yes high blood pressure; No murmur, pacemaker, heart disease, atrial fibrillation, heart attack, heart stent, palpitations, shortness of breat with exertion or chest pain Psych Psychiatric: No depression, anxiety or hearing voices Resp Respiratory: No shortness of breath, No sleep apnea, No cough, No COPD, No asthma, No emphysema and No wheezing Gastro Gastrointestinal: Yes abdominal pain, Yes nausea or vomiting, Yes diarrhea, Yes constipation, No blood in stool, Yes acid reflux, Yes hemorrhoids, Yes ulcers, No gallbladder problem and No black,tarry stools [place] Hematologic: No blood thinners, No blood disorders, No bleeding, No anemia and No blood clots Neuro Neurologic: No system reviewed and no additional complaints, except as documented, No as per HPI, No abnormal gait, No abnormal hearing, No abnormal movements, No abnormal speech, No behavioral changes, No burning sensations, No confusion, No convulsions, No disequilibrium, No dizziness, No localized weakness, No frequent falls, No headache(s), No lack of coordination, No loss of vision, No memory loss, No numbness, No other visual disturbances, No radicular pain, No restless legs, No sensory deficit, No syncope, No tingling, No tremor(s), No weakness and Yes other (TIA) Exam Const General: cooperative and comfortable Nutritional Appearance: average body habitus [facility] Head: normal to inspection Eyes General: appearance normal, both eyes and all related structures Neck Neck: normal visual inspection Chest Chest palpation & inspection: normal inspection of the chest Resp Effort & Inspection: normal respiratory effort Auscultation: clear to auscultation bilaterally Cardio Rate: regular rate Rhythm: regular rhythm GI Inspection: normal to inspection Palpation: soft and no hepatosplenomegaly Skin General: no rashes or lesions noted Neuro General: patient alert, patient awake and patient oriented x3 Extrem General: no calf tenderness Psych Appearance: grossly normal Assessment and Plan Assessment and Plan (1) Abdominal pain: Status: Acute Qualifiers: Abdominal location: epigastric Qualified Code(s): R10.13 - Epigastric pain Plan: Constant epigastric pain that does not resolve with diet or positioning or medication. The chronicity and constancy of the pain seems out of proportion to otherwise anticipation. She reports a history of a hiatal hernia not sure whether potential for other structures like small bowel or colon could be now within this hernia. I do propose for her a esophagogastroduodenoscopy with a likely biopsy for H. pylori as well as other if appropriate. I have described the technique, benefi t, risk, alternatives. I recommend that we proceed with a abdominal CT scan to exclude other solid organ or enteric involvement. She has had an opportunity to ask and have questions answered. We will schedule expedite her care. I appreciate the opportunity of assisting with the surgical management. Orders: Orders Abdomen/Pelvis WITH Contrast Today R10.9 - Unspecified abdominal pain CT images is still pending. We will proceed with esophagogastroduodenoscopy with possible biopsy or polypectomy today. Catalino Ruffin M.D., F.A.C.S.
[2023-04-01] MEDS: Lactated Ringers 1,000 ML 15 ML IV (06:57)
--- NOTE | 2023-04-01 07:00 | IMM_PTH ---
PATIENT: CHERYL CORTEZ LOC: EN U#:[id number] AGE/SX: 72/F ROOM: RE04/01/[address]: Dr. Catalino Ruffin MD : 1950 BED: DIS: 04/01/2023 SPEC #: [id number] RECD: 04/01/23 14:13 STATUS: SONI REChristal #: [id number] KEILA: 04/01/23 07:[address]: Catalino Ruffin DEPT: IMMUNOHISTOCHEMISTRY RECD BY: Nathaly Weber ENTERED: 04/01/23 14:14 SP TYPE: IMMUNO OTHR DR: Dr. Sofia Santos MD Tissues: B - Stomach, NOS Procedures: H Pylori (initial) PHYSICIAN & [place] [id number] SPECIMEN INFORMATION: Tissue Source: B - Antrum Clinical Info: Abdominal pain Specimen Number: [id number] CPT code: 83655 METHODOLOGY: Deparaffinized sections of prefer/formalin-fixed tissue or PAP/DQ stained slides are incubated with monoclonal/polyclonal antibodies/oligonucleotide probes. Localization is made via biotin free immunoperoxidase method. Appropriate controls are performed and reacted as expected. Results on target cell population are indicated in the following table: RESULTS: ANTIBODY / CLONE RESULT Block B H Pylori (polyclonal) negative These tests were developed and their performance characteristics determined by [facility]. They may not have been cleared or approved by the U.S. Food and Drug Administration. The FDA has determined that such clearance or approval is not necessary. The above immunohistochemical/dualISH markers are ordered and reviewed by the Pathologist. INTERPRETATION: B. Antrum, biopsy: - Negative for Helicobacter pylori organisms. AM:charisse 04/02/23
[2023-04-01 07:50] VITALS: BP 146/81; BP 99/48; PULSE 80; RESP 18; TEMP 36.1; O2SAT 94
--- NOTE | 2023-04-01 07:52 | OP.EGD_ITS ---
Patient Name: Doris Pedraza Procedure Date: 04/01/2023 7:30 AM Date of : 1950 Age: 72 Procedure: Upper GI endoscopy Indications: Epigastric abdominal pain Providers: Catalino Ruffin MD Referring MD: Sofia aSntos Medicines: See the Anesthesia note for documentation of the administered medications Complications: No immediate complications. Procedure: Pre-Anesthesia Assessment: - Prior to the procedure, a History and Physical was performed, and patient medications and allergies were reviewed. The patient's tolerance of previous anesthesia was also reviewed. The risks and benefits of the procedure and the sedation options and risks were discussed with the patient. All questions were answered, and informed consent was obtained. Prior Anticoagulants: The patient has taken no anticoagulant or antiplatelet agents. ASA Grade Assessment: II - A patient with mild systemic disease. After reviewing the risks and benefits, the patient was deemed in satisfactory condition to undergo the procedure. After obtaining informed consent, the endoscope was passed under direct vision. Throughout the procedure, the patient's blood pressure, pulse, and oxygen saturations were monitored continuously. The gastroscope was introduced through the mouth, and advanced to the second part of duodenum. The upper GI endoscopy was accomplished without difficulty. The patient tolerated the procedure well. Scope In: 7:37:11 AM Scope Out: 7:43:28 AM Total Procedure Duration Time 0 hours 6 minutes 17 seconds Findings: The Z-line was regular and was found 35 cm from the incisors. Biopsies were taken with a cold forceps for histology. A 5 cm hiatal hernia was present. A few sessile polyps with no bleeding and no stigmata of recent bleeding were found on the greater curvature of the stomach. The polyp was removed with a cold biopsy forceps. Resection and retrieval were complete. Diffuse mildly erythematous mucosa without bleeding was found in the gastric antrum. Biopsies were taken with a cold forceps for histology. The examined duodenum was normal. Biopsies were taken with a cold forceps for histology. The middle third of the esophagus was normal. Biopsies were taken with a cold forceps for histology. Impression: - Z-line regular, 35 cm from the incisors. Biopsied. - 5 cm hiatal hernia. - A few gastric polyps. Resected and retrieved. - Erythematous mucosa in the antrum. Biopsied. - Normal examined duodenum. Biopsied. - Normal middle third of esophagus. Biopsied. The findings do not seem to correlate with the degree of patient's epigastric pain. We will pursue CT scan of the abdomen. Will await biopsy results. We will have the patient follow-up in the office to discuss findings. Recommendation: - Discharge patient to home. - Resume previous diet. - Continue present medications. - Return to my office in 2 weeks. Procedure Code(s): --- Professional --- 67373, Esophagogastroduodenoscopy, flexible, transoral; with biopsy, single or multiple Diagnosis Code(s): --- Professional --- K44.9, Diaphragmatic hernia without obstruction or gangrene K31.7, Polyp of stomach and duodenum K31.89, Other diseases of stomach and duodenum R10.13, Epigastric pain CPT copyright 2021 [employer]. All rights reserved. The codes documented in this report are preliminary and upon spray dyer review may be revised to meet current compliance requirements. Catalino Ruffin MD 04/01/2023 7:51:55 AM This report has been signed electronically. Number of Addenda: 0 Note Initiated On: 04/01/2023 7:30 AM
--- NOTE | 2023-04-01 07:52 | OP.CCLET_ITS ---
04/01/2023 Sofia Santos [address] [place] [address] Re : Upper GI endoscopy procedure for Doris Pedraza Dear Dr. Santos This procedure was performed on Saturday, April 01, 2023. My impressions and recommendations are as follows: Impressions : - Z-line regular, 35 cm from the incisors. Biopsied. - 5 cm hiatal hernia. - A few gastric polyps. Resected and retrieved. - Erythematous mucosa in the antrum. Biopsied. - Normal examined duodenum. Biopsied. - Normal middle third of esophagus. Biopsied. The findings do not seem to correlate with the degree of patient's epigastric pain. We will pursue CT scan of the abdomen. Will await biopsy results. We will have the patient follow-up in the office to discuss findings. Recommendations : - Discharge patient to home. - Resume previous diet. - Continue present medications. - Return to my office in 2 weeks. My findings are described in the full procedure note, which is enclosed. If I can be of further assistance, please feel free to contact me at Doctor phone number(s): Work: . Sincerely, Catalino Ruffin MD 04/01/2023 7:51:55 AM This report has been signed electronically.
[2023-04-01 07:55] VITALS: BP 146/81; BP 97/50; PULSE 79; RESP 17; O2SAT 78
[2023-04-01 08:00] VITALS: BP 104/55; BP 146/81; PULSE 81; RESP 17; O2SAT 93
[2023-04-01 08:05] VITALS: BP 107/67; BP 146/81; PULSE 76; RESP 17; TEMP 36.1; O2SAT 96
[2023-04-01 08:16] VITALS: BP 146/81
== END 2023-04-01 08:28 | disposition home or self-care (01) ==
LOC: EN 06:24 → AC 06:26
PROVIDERS: PCP Family Medicine; Referring Provider Family Medicine; Visit Provider Surgery
PROC: 0DJ08ZZ Inspection of Upper Intestinal Tract, Via Natural or Artificial Opening Endoscopic (ICD-10-PCS; CPT 43235; principal; 2023-04-01 07:25)
DX: K29.50 Unspecified chronic gastritis without bleeding (principal); K44.9 Diaphragmatic hernia without obstruction or gangrene; K31.89 Other diseases of stomach and duodenum; K31.7 Polyp of stomach and duodenum; K21.9 Gastro-esophageal reflux disease without esophagitis; E78.00 Pure hypercholesterolemia, unspecified; I10 Essential (primary) hypertension; Z79.82 Long term (current) use of aspirin; Z79.899 Other long term (current) drug therapy; Z87.891 Personal history of nicotine dependence; Z86.73 Personal history of transient ischemic attack (TIA), and cerebral infarction without residual deficits
CPT/HCPCS: 43239; 88305; 88313; 88342; J7120

== ENCOUNTER → 2023-04-02 | Outpatient (CLI) | payer MEDICARE, BC, SELFPAY ==
--- NOTE | 2023-04-02 06:48 | CT_ITS ---
STUDY: CT ABDOMEN AND PELVIS WITH CONTRAST - URINARY TRACT REASON FOR EXAM: Female, 72 years old. Abdominal pain RADIATION DOSAGE (If Supplied By Facility): CTDIvol = ( 15.72 ) mGy, DLP = ( 1080.44 ) mGycm TECHNIQUE: Oral Readi-CAT and IV 100mL Isovue-370 was administered. Transaxial images were obtained from the dome of the diaphragm to the symphysis pubis subsequent to intravenous contrast administration. Multiplanar coronal and sagittal images were reformatted. Individualized Dose Optimization Techniques Were Used For This CT. COMPARISON: Prior studies dated: March 03, 2016 and March 06, 2020 and ultrasound dated February 25, 2023 FINDINGS: The visualized lung bases are unremarkable. The visualized portions of the heart are within normal limits. There is a too small to characterize low-attenuation focus within the dome of the right hepatic lobe which may reflect a cyst or hemangioma. Normal gallbladder and extrahepatic biliary system. Normal spleen. Normal pancreas. Normal bilateral adrenal glands. There is a small to moderate size hiatal hernia. Normal small intestine. Normal colon. The appendix is visualized and appears normal. There is diffuse atherosclerotic calcification of the abdominal aorta, without a demonstrated aneurysm. No retroperitoneal adenopathy. There are bilateral renal cysts. Normal urinary bladder. There is a stable 1.7 cm cystic focus within the right adnexa. There is a small umbilical hernia containing fat. There are diffuse degenerative changes of the visualized lumbar spine. There are grossly stable sclerotic foci within the L4 vertebra. CT/Abdomen/Pelvis WITH Contrast IMPRESSION: Hiatal hernia. Atherosclerosis. Degenerative changes of the lumbar spine. Electronically Signed: Linette Monroe MD at 8:25 EDT ,
[2023-04-02 07:14] LABS: CREATININE FINGERSTICK 1.2 mg/dL (0.55-1.02)
== END | disposition home or self-care (01) ==
LOC: CT 06:44
PROVIDERS: PCP Family Medicine; Referring Provider Surgery; Visit Provider Surgery
DX: R10.9 Unspecified abdominal pain (principal)
CPT/HCPCS: 74177; Q9967

== ENCOUNTER 2023-09-02 14:49 | Emergency (ER) | payer MEDICARE, BC, SELFPAY ==
[2023-09-02 14:50] VITALS: BP 184/97; PULSE 88; RESP 14; TEMP 36.1; O2SAT 100; BMI 33.3
--- NOTE | 2023-09-02 15:12 | RAD_ITS ---
STUDY: X-RAY - LEFT WRIST REASON FOR EXAM: Female, 72 years old. Pain following a fall. TECHNIQUE: 3 view(s) of the wrist were obtained. COMPARISON: None. FINDINGS: Normal visualized distal radius and ulna. Normal radiocarpal articulation. Normal distal radioulnar articulation. Normal carpal bones. Normal carpal articulations. Normal carpometacarpal articulation of the thumb. Normal second through fifth carpometacarpal articulations. Normal visualized metacarpal bones. The soft tissue structures are unremarkable. RAD/Wrist min 3 Views IMPRESSION: Normal x-ray examination of the wrist. Electronically Signed: Rustam Pritchard MD at 15:31 EST ,
--- NOTE | 2023-09-02 15:13 | EX.ED.UPPERE ---
HPI History of Present Illness Chief Complaint: Upper Extremity Injury Narrative Narrative: 72-year-old female, [id number], presents with injury to her left wrist that she sustained this morning, over 5 hours ago. She states that she slipped on the ice on her driveway when she was taking her dogs out this morning. She fell more onto an outstretched hand, and now has pain with movement of her left wrist. It is more in the distal radius. While she fell and may have bruised her hip, she has been able to ambulate. She denies hitting her head or loss of consciousness, no other injury. She went about her day, and even went to [facility] because her daughter needed a procedure today, and on the way home, she has continued pain in her left wrist so she presents to us for evaluation of this pain. [facility] Medical History Arthritis Former smoker Gastric reflux Heartburn High cholesterol History of echocardiogram History of hiatal hernia History of IBS History of renal disease Hypertension TIA (transient ischemic attack) Wears glasses Home Medications aspirin 81 mg tablet,delayed release 81 mg PO DAILY 03/24/23 [History Last Taken Unknown] lisinopril 5 mg tablet 5 mg PO DAILY 03/24/23 [History Last Taken 04/01/23 05:30] omeprazole 20 mg capsule,delayed release 20 mg PO DAILY PRN gerd 03/24/23 [History Last Taken Unknown] rosuvastatin 10 mg tablet 10 mg PO .3x/week 03/24/23 [History Last Taken Unknown] Allergy/AdvReac Type Severity Reaction Status Date / Time tomato Allergy Hives Verified 09/02/23 14:49 wheat Allergy Other Verified 09/02/23 14:49 erythromycin base AdvReac Diarrhea Verified 09/02/23 14:49 Family History Mother Diabetes Heart disease Kidney disease Father Heart disease CVA (cerebral vascular accident) Surgical History History of arthroscopic surgery of shoulder History of extraction of renal calculus History of tonsillectomy History of tubal ligation Social History Smoking Status: Former smoker alcohol intake: never substance use type: does not use ROS ROS ED ROS Narrative Constitutional: No fever, no chills. HEENT: No sore throat. No neck pain. No loss of vision. No rhinorrhea. Cardiovascular: No chest pain. No palpitations. No pedal edema. Respiratory: No cough, no shortness of breath. Abdominal: No abdominal pain. No nausea. No vomiting. Genitourinary: No dysuria. No hematuria. Musculoskeletal: No myalgias. Left wrist pain worse with movement. Neurologic: No headaches. No dizziness. No lightheadedness. Skin: No rash. No change in color. Psychiatric: No depression. No anxiety. EXAM Physical Exam Narrative Exam Narrative: Afebrile. Vital signs noted. HEENT: Normocephalic. Atraumatic. PERRL, EOMI. Neck soft and supple. No point tenderness or step off. Cardiovascular: Regular rate and rhythm. No murmurs, rubs, or gallops appreciated. Respiratory: No tachypnea. Lungs clear to auscultation bilaterally. Gastrointestinal: Abdomen soft, nontender, with normoactive bowel sounds. No rebound or guarding. Neurological: Awake. Alert. Nonfocal, nonlateralizing. Skin: No rash. Normal color. No pallor. Musculoskeletal: No pedal edema. Mild tenderness to palpation left distal radius. Able to oppose thumb. Slight ecchymosis of the thenar eminence. Palpable radial pulse, left. Uninjured at elbow and above. Const Vital Signs: 09/02/23 14:50 Temperature 96.9 F L Temperature Source Temporal Pulse Rate 88 Respiratory Rate 14 Blood Pressure 184/97 H Blood Pressure Mean 126 Pulse Ox 100 Oxygen Delivery Method Room Air MDM MDM MDM Narrative Medical decision making narrative: Patient has already taken Tylenol at home which she said takes the edge off. She has already been given an ice pack. Concern is for hand contusion versus hand or wrist fracture versus wrist sprain. X-rays were obtained of the left wrist and 3 views interpreted by myself independently. I see no obvious fracture of the distal radius especially, where she is most tender. I reviewed the radiology report which confirms my independent interpretation. At this point in time, she was placed in a Velcro wrist splint and she will follow-up with her primary care provider. I feel she can be discharged safely home with follow-up. Return instructions to the emergency department were reviewed. Disposition is discharged home in stable condition. Discharge Plan Triage Chief Complaint: Upper Extremity Injury ED Provider: Ramakrishna Anand Dx/Rx/DC Orders Clinical Impression: Contusion of left hand, Left wrist sprain Instructions: ED Hand Contusion, ED Wrist Sprain Prescriptions: No Action lisinopril 5 mg tablet 5 mg PO DAILY omeprazole 20 mg capsule,delayed release(DR/EC) 20 mg PO DAILY PRN (Reason: gerd) aspirin 81 mg tablet,delayed release (DR/EC) 81 mg PO DAILY rosuvastatin 10 mg tablet 10 mg PO .3x/week Primary Care Provider: Sofia Santos Referrals: Sofia Santos MD [Primary Care Provider] - 1 Week if not improving Activity Restrictions/Additional Instructions: Continue ice and elevation of your left wrist at home. Follow-up with your primary care provider in 1 week if not improving. You may wear your left wrist splint for support, and you may remove it for bathing or sleeping as needed. Disposition Disposition: Home, Self Care
--- OUTSIDE RECORDS SUMMARY | 2023-09-02 15:52 | XMS RPT_ITS | CCD ---
Author Name Unknown Address [address] [place] [address] [address] [place] [address] Organization [facility] Care Team Providers Care Information Coder Name Role Phone Sofia Santos Primary Care Provider Allergies Allergy Classification Reported Allergen(s) Allergy Type Date of Onset Reaction(s) Facility (2 sources) Erythromycin; Translations: [ERYTHROMYCIN] Drug Allergy 0 Diarrhea [facility] (2 sources) Minocycline; Translations: [MINOCYCLINE] Drug Allergy 4 Other: See Comments [facility] (2 sources) Mold Extract; Translations: [MOLD] Drug Allergy 7 [facility] Work Phone: (2 sources) Omeprazole; Translations: [OMEPRAZOLE] Drug Allergy 1 Other: See Comments [facility] Work Phone: (2 sources) tomato allergenic extract; Translations: [TOMATO] Drug Allergy 7 [facility] Work Phone: (2 sources) Wheat, Wheat Germ; Translations: [WHEAT, WHEAT GERM] Propensity to adverse reactions 7 [facility] Work Phone: Medications Current Medications Medication Drug Class(es) Dates Sig (Normalized) Sig (Original) amoxicillin 875 mg / clavulanate 125 mg oral tablet (1 source) Penicillin-class Antibacterial Start: 01-06-2022 End: 01-13-2022 take 1 tablet by mouth twice daily amoxicillin-clavulan ic acid (AUGMENTIN) 875-125 mg per tablet Indications: Sinobronchitis Take 1 tablet by mouth twice daily for 7 days. 14 tablet 0 01/06/2022 01/13/2022 Active Completed/Discontinued Medications Medication Drug Class(es) Dates Sig (Normalized) Sig (Original) aspirin 81 mg delayed release oral tablet (1 source) Platelet Aggregation Inhibitor, Nonsteroidal Anti-inflammatory Drug take 1 tablet by mouth once daily aspirin, enteric coated (ASPIRIN, ENTERIC COATED) 81 mg EC tablet Take 81 mg by mouth once daily. 0 Active Problems Active Problems Problem Classification Problem Date Documented Da te Episodic/Chronic Disorders of lipid metabolism (1 source) Hyperlipidemia; Translations: [Hyperlipidemia, unspecified] Onset: 10-07-2017 10-07-2017 Chronic Essential hypertension (1 source) Benign hypertension; Translations: [Essential (primary) hypertension] Onset: 06-01-2020 06-01-2020 Chronic Other upper respiratory infections (1 source) Chronic sinusitis; Translations: [Chronic sinusitis, unspecified] Chronic Other upper respiratory infections (1 source) Acute upper respiratory infection; Translations: [Acute upper respiratory infection, unspecified] Episodic Transient cerebral ischemia (1 source) Transient cerebral ischemia; Translations: [Transient cerebral ischemic attack, unspecified] Onset: 06-01-2020 06-01-2020 Chronic Past or Other Problems Problem Classification Problem Date Documented Da te Episodic/Chronic Blindness and vision defects (1 source) Left homonymous hemianopsia; Translations: [Homonymous bilateral field defects, left side] Onset: 06-01-2020 06-01-2020 Episodic Diabetes mellitus without complication (1 source) Impaired fasting glycemia; Translations: [Impaired fasting glucose] Onset: 10-07-2017 10-07-2017 Episodic Results Test Name Value Interpretation Reference Range Facil ity Vital Signs Date Time Vital Sign Value Performing Clinician Tiffani chavez 01-06-2022 08:12-0400 Body temperature 97.9 [degF] Dayana Tinsley PA-C Work Phone: [facility] 01-06-2022 08:12-0400 Body weight 86.27 kg Dayana Tinsley PA-C Work Phone: [facility] 01-06-2022 08:12-0400 Diastolic blood pressure 90 mm[Hg] Dayana Tinslye PA-C Work Phone: [facility] 01-06-2022 08:12-0400 Heart rate 122 /min Dayana Tinsley PA-C Work Phone: [facility] 01-06-2022 08:12-0400 Respiratory rate 20 /min Dayana Tinsley PA-C Work Phone: [facility] 01-06-2022 08:12-0400 SaO2% (BldA) [Mass fraction] 98 % Dayana Tinsley PA-C Work Phone: [facility] 01-06-2022 08:12-0400 Systolic blood pressure 132 mm[Hg] Dayana Tinsley PA-C Work Phone: [facility] Encounters Encounter Date Encounter Type Care Provider Facility Start: 08-13-2023 End: 08-13-2023 ambulatory SOFIA Jean Paul KEITA Facility:[facility] Start: 01-06-2022 End: 01-06-2022 Patient encounter procedure Dayana Tinsley PA-C Work Phone: [facility] Procedures Date Procedure Procedure Detail Performing Clinician Start: 08-18-2020 Mammography Dayana Tinsley PA-C Work Phone: Start: 10-15-2017 Colonoscopy Dayana Tinsley PA-C Work Phone: Start: 10-07-2017 Adult depression scr eening assessment Dayana Tinsley PA-C Work Phone: Plan of Treatment Date Care Activity Detail Author Start: 10-16-2027 Colonoscopy COLONOSCOPY [facility] Start: 10-16-2027 COLORECTAL CANCER SCREENING COLORECTAL CANCER SCREENING [facility] Start: 07-13-2026 LIPID SCREEN LIPID SCREEN [facility] Start: 02-13-2026 Urine microalbumin profile DTAP,TDAP,TD (4 - Td or Tdap) [facility] Start: 07-13-2024 DIABETES SCREEN DIABETES SCREEN [facility] Start: 04-11-2022 [facility] Start: 01-06-2022 End: 01-20-2022 Influenza virus A and B RNA and SARS-CoV-2 (COVID-19) N gene panel - Respiratory specimen by LOYDA with probe detection COVID WITH FLUA+B, ROUTINE Microbiology Routine Sinobronchitis Acute upper respiratory infection, unspecified Expected: 01/06/2022, Expires: 01/20/2022 [facility] Work Phone: Immunizations Immunization Date Immunization Notes Care Provider Homa gaytan 06-01-2020 influenza, high-dose , quadrivalent vaccine (FLUZONE HIGH DOSE QUADRIVALENT) Dayana Athy PA-C Work Phone: [facility] 04-24-2019 influenza, high dose seasonal, preservative-free Dayana Athy PA-C Work Phone: [facility] 04-24-2019 pneumococcal polysaccharide vaccine, 23 valent Dayana Athy PA-C Work Phone: [facility] 03-13-2018 pneumococcal conjuga te vaccine, 13 valent Dayana Athy PA-C Work Phone: [facility] 05-26-2017 influenza, seasonal, injectable Dayana Athy PA-C Work Phone: [facility] 02-14-2016 tetanus toxoid, redu susy diphtheria toxoid, and acellular pertussis vaccine, adsorbed Dayana Athy PA-C Work Phone: [facility] Work Phone: 02-04-2008 tetanus toxoid, redu susy diphtheria toxoid, and acellular pertussis vaccine, adsorbed Dayana Athy PA-C Work Phone: [facility] 09-30-1961 diphtheria, tetanus toxoids and pertussis vaccine Dayana Athy PA-C Work Phone: [facility] Work Phone: 11-13-1956 trivalent poliovirus vaccine, live, oral Dayana Athy PA-C Work Phone: [facility] Work Phone: 01-09-1956 trivalent poliovirus vaccine, live, oral Dayana Athy PA-C Work Phone: [facility] Work Phone: 09-27-1955 trivalent poliovirus vaccine, live, oral Dayana Athy PA-C Work Phone: [facility] Work Phone: Payers Date Payer Category Payer Medicare [id number] 2018 Unknown [place] [employer] DIC[employer] SUPPLEMENT [id number] 2018-Present [phone] [address] [place] [address] Indemnity [id number] 2017 Medicare MEDICARE MEDICAR E A AND B [id number] 2017-Present [phone] [address] [address] [place] [address] Medicare [id number] 2017 Medicare [id number] Social History Date Type Detail Facility Tobacco smoking stat [facility] Ex-smoker [facility] Start: 01-06-2022 Alcohol intake Current drinke r of alcohol (finding) [facility] Start: 05-11-2007 History SDOH Alcohol Comment rare [facility] Start: 1950 Sex Assigned At Not on file C [facility] Start: 12-27-2021 End: 01-06-2022 Exposure to SARS-CoV-2 (event) Not sure [facility] Progress note 08-13-2023 Note Date & Type Note Facility 08-13-2023 Note HNO ID: [id number] Author: Joy Martins APRN.[employer] Service: ? Author Type: Nurse Practitioner Type: Progress Notes Filed: 08/13/2023 7:25 AM Note Text: CC: Patient presents with: Sinus Problem: sinus pressure, drainage, headache x 1 week HPI: Doris Cortez is a 72 year old female who presents to the office with complaint of head congestion and sinus symptoms for a week. Symptoms are staying the same. Associated symptoms includes nasal congestion and facial pain/pressure. Denies fever, nausea, vomiting , and diarrhea. Treatments tried include nothing so far. with no relief of symptoms. Sick contacts: unknown. History of asthma, frequent episodes of bronchitis, chronic bronchitis, bronchiectasis or COPD: No Smoker: No Seasonal/environmental allergies: No The ROS is otherwise negative. The patient's pmh, medications, allergies, and past visits are reviewed. PHYSICAL EXAM: BP 124/72 Pulse 64 Temp 36.3 ?C (97.4 ?F) Resp 16 Wt 86.2 kg (190 lb) SpO2 97% BMI 32.11 kg/m? General appearance: alert, cooperative, pleasant, in no acute distress Head: Normocephalic Eyes: EOM's intact, conjunctiva pink and moist, no icterus, sclera white, non-injected Ears: Right ear: External ear/canal- Normal, TM - clear with good landmarks. Left ear: External ear/canal- Normal, TM - clear with good landmarks Oropharynx:moist without lesions, No erythema, exudates or tonsillar hypertrophy. Heart: Negative. RRR without obvious murmur, gallop, or rubs. No ectopy. 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 Hypercholesteremia PAST SURGICAL HISTORY Procedure Laterality Date COLONOSCOPY FLX DX W/COLLJ SPEC WHEN PFRMD 07/17/07 Tortuous left colon-repeat in COLONOSCOPY FLX DX W/COLLJ SPEC WHEN PFRMD 10/15/2017 Colonoscopy CYSTOSCOPY_*FL 2002 ESOPHAGOGASTRODUODENOSCOPY TRANSORAL DIAGNOSTIC 09/04/2011 EGD LIG/TRNSXJ FLP TUBE ABDL/VAG APPR UNI/BI 1983 Tubal ligation LYSIS LABIAL ADHESIONS 1980 benign tumor PAST SURGICAL HISTORY OF 12/19/04 right shoulder bursectomy RESECTION ELBOW JOINT ARTHRECTOMY 12/19/04 right TONSILLECTOMY PRIMARY/SECONDARY Tonsillectomy ALLERGIES Erthromycin [Erythromycin]; Minocycline; Mold; Tomato; Wheat, Wheat Germ; and Zegerid [Omeprazole] MEDICATIONS rosuvastatin (CRESTOR) 10 mg tablet Take 10 mg by mouth once daily. aspirin, enteric coated (ASPIRIN, ENTERIC COATED) 81 mg EC tablet Take 81 mg by mouth once daily. lisinopril (ZESTRIL, PRINIVIL) 5 mg tablet Take 1 tablet by mouth once daily. multivitamin ORAL tablet Take 1 tablet by mouth once daily. amoxicillin-clavulanate potassium (AUGMENTIN) 875-125 mg per tablet Take 1 tablet by mouth two times a day for 7 days. benzonatate (TESSALON PERLES) 100 mg capsule Take 2 capsules by mouth three times daily as needed. (Patient not taking: Reported on 08/13/2023) fluticasone (FLONASE) 50 mcg/actuation nasal spray Use 2 Sprays in each nostril once daily. Rinse mouth after use. (Patient not taking: Reported on 04/27/2019 ) FAMILY HISTORY Problem Relation Age of Onset Stroke Father Coronary Artery Disease Father Hypertension Father Diabetes Father other (Other) Father PVD Diabetes Paternal Grandmother Coronary Artery Disease Mother ID, hyperlipidemia other (Other) Mother Gallbladder Hypertension Sister Cancer Brother 53 testicular Social History Tobacco Use Smoking status: Former Smokeless tobacco: Never Substance Use Topics Alcohol use: Yes Comment: rare Drug use: No ASSESSMENT/PLAN: 1. Rhinosinusitis - ICD9: 473.9, ICD10: J32.9 - AMOXICILLIN 875 MG-POTASSIUM CLAVULANATE 125 MG TABLET Prescription instructions reviewed with patient as applicable. Potential red flag symptoms discussed with the patient. Reviewed appropriate action plan to take if red flag symptoms occur. Patient agreeable to treatment plan. Joy Martins APRN.[facility] History of Present illness Narrative 01-06-2022 Dayana Tinsley PA-C - 01/06/2022 9:16 AM EDT Note Date & Type Note Facility 01-06-2022 History of Presen t illness Narrative This note was created using TIKI.VNter. Subjective Doris Cortez is a 71 year old female. HPI Patient presents with a chief complaint of cough and congestion over the past 6 to 7 days. States cough is worse in the past couple days. She also has some sinus pressure. She tried some OTC medicines without relief. No chest pain or shortness of breath. She states her was ill with a similar symptom but is not as bad as her. She did take 3 at home COVID test which were negative. No change in smell or taste. She is not a smoker. She did smoke about 20 years ago for about 15 years. Denies history of asthma or COPD. Review of Systems Constitutional: Positive for fatigue. Negative for fever. HENT: Positive for congestion, sinus pressure and sinus pain. Respiratory: Positive for cough. Negative for chest tightness, shortness of breath and wheezing. Cardiovascular: Negative. Gastrointestinal: Negative. Genitourinary: Negative. Musculoskeletal: Negative. All other systems reviewed and are negative. PAST MEDICAL HISTORY Diagnosis Date Abdominal pain, left upper quadrant Calculus of kidney 11/2002 left Diaphragmatic hernia without mention of obstruction or gangrene Hypercholesteremia Current Outpatient Medications Medication Sig Dispense Refill rosuvastatin (CRESTOR) 10 mg tablet Take 10 mg by mouth once daily. aspirin, enteric coated (ASPIRIN, ENTERIC COATED) 81 mg EC tablet Take 81 mg by mouth once daily. lisinopril (ZESTRIL, PRINIVIL) 5 mg tablet Take 1 tablet by mouth once daily. 30 tablet 11 multivitamin ORAL tablet Take 1 tablet by mouth once daily. 0 amoxicillin-clavulanic acid (AUGMENTIN) 875-125 mg per tablet Take 1 tablet by mouth twice daily for 7 days. 14 tablet 0 benzonatate (TESSALON PERLES) 100 mg capsule Take 2 capsules by mouth three times daily as needed. 30 capsule 0 predniSONE (DELTASONE) 20 mg tablet Take 2 tablets by mouth once daily for 5 days. 10 tablet 0 fluticasone (FLONASE) 50 mcg/actuation nasal spray Use 2 Sprays in each nostril once daily. Rinse mouth after use. (Patient not taking: Reported on 04/27/2019 ) 1 Bottle 0 No current facility-administered medications for this visit. PAST SURGICAL HISTORY Procedure Laterality Date COLONOSCOPY FLX DX W/COLLJ SPEC WHEN PFRMD 07/17/07 Tortuous left colon-repeat in COLONOSCOPY FLX DX W/COLLJ SPEC WHEN PFRMD 10/15/2017 Colonoscopy CYSTOSCOPY_*FL 2002 ESOPHAGOGASTRODUODENOSCOPY TRANSORAL DIAGNOSTIC 09/04/2011 EGD LIG/TRNSXJ FLP TUBE ABDL/VAG APPR UNI/BI 1983 Tubal ligation LYSIS LABIAL ADHESIONS 1980 benign tumor PAST SURGICAL HISTORY OF 12/19/04 right shoulder bursectomy RESECTION ELBOW JOINT ARTHRECTOMY 12/19/04 right TONSILLECTOMY PRIMARY/SECONDARY <AGE 14 Tonsillectomy FAMILY HISTORY Problem Relation Age of Onset Stroke Father Coronary Artery Disease Father Hypertension Father Diabetes Father other (Other) Father PVD Diabetes Paternal Grandmother Coronary Artery Disease Mother ID, hyperlipidemia other (Other) Mother Gallbladder Hypertension Sister Cancer Brother 53 testicular Social History Tobacco Use Smoking status: Former Smoker Smokeless tobacco: Never Used Substance Use Topics Alcohol use: Yes Comment: rare Drug use: No Objective BP 132/90 Pulse (!) 122 Temp 36.6 C (97.9 F) Resp 20 Wt 86.3 kg (190 lb 3.2 oz) SpO2 98% BMI 32.14 kg/m Physical Exam Vitals reviewed. Constitutional: Appearance: Normal appearance. HENT: Head: Normocephalic and atraumatic. Right Ear: Tympanic membrane, ear canal and external ear normal. Left Ear: Tympanic membrane, ear canal and external ear normal. Nose: Congestion present. Right Sinus: Maxillary sinus tenderness present. Left Sinus: Maxillary sinus tenderness present. Mouth/Throat: Mouth: Mucous membranes are moist. Pharynx: Oropharynx is clear. Cardiovascular: Rate and Rhythm: Regular rhythm. Tachycardia present. Heart sounds: Normal heart sounds. Pulmonary: Effort: Pulmonary effort is normal. Breath sounds: Normal breath sounds. No wheezing. Musculoskeletal: Cervical back: Neck supple. Skin: General: Skin is warm and dry. Neurological: General: No focal deficit present. Mental Status: She is alert and oriented to person, place, and time. Assessment and Plan ASSESSMENT/PLAN: 1. Sinobronchitis - ICD9: 473.9, 490, ICD10: J32.9, J40 (primary diagnosis) - Will begin treatment with Augmentin 875 mg PO BID for 7 days - Supportive care with plenty of fluids, rest, and analgesia prn. - Follow up in 3-5 days if symptoms persist or worsen. - AMOXICILLIN 875 MG-POTASSIUM CLAVULANATE 125 MG TABLET - BENZONATATE 100 MG CAPSULE - PREDNISONE 20 MG TABLET - COVID WITH FLUA+B, ROUTINE 2. Acute upper respiratory infection, unspecified - ICD9: 465.9, ICD10: J06.9 - Symptomatic treatment with prn analgesia - Supportive care with fluids and rest - COVID WITH FLUA+B, ROUTINE Dayana Tinsley PA-C documented in this encounter [facility] History of Past illness Narrative 05-25-2014 Note Date & Type Note Facility documented as of this encounter (statuses as of 01/06/2022) [facility] Evaluation note Note Date & Type Note Facility documented in this encounter [facility] Health Concerns Infection Onset Date Last Indicated Resolved Time COVID-19 Rule-Out 01/06/2022 01/06/2022 Advance Directives No Advanced Directives Records FoundDocuments on File Type Date Recorded Patient Tipple Operator Expl anation Advance Directive(s) 10/15/2017 10:03 AM Advance Directive(s) 10/02/2017 1:59 PM Summary Purpose Family History No Family History Records Found Additional Source Comments Source Comments (unrecognize d section and content) In the event this informatio n is protected by the Federal Confidentiality of Alcohol and Drug Abuse Patient Records regulations: The Federal rules restrict any use of the information to criminally investigate or prosecute any alcohol or drug abuse patient.[facility] Reason for Visit (unrecogniz ed section and content) Care Teams (unrecognized sec tion and content) INFORMATION SOURCE (unrecogn ized section and content) FOR RECORDS PERTAINING TO PATIENTS WHO ARE OR HAVE BEEN ENROLLED IN A CHEMICAL DEPENDENCY/SUBSTANCEABUSE PROGRAM, SOME INFORMATION MAY BE OMITTED. This clinical summary was aggregated from multiple sources. Caution should be exercised in using it in the provision of clinical care. This summary normalizes information from multiple sources, and as a consequence, information in this document may materially change the coding, format and clinical context of patient data. In addition, data may be omitted in some cases. CLINICAL DECISIONS SHOULD BE BASED ON THE PRIMARY CLINICAL RECORDS. [facility] [employer] [facility]. provides no warranty or guarantee of the accuracy or completeness of information in this document.
== END 2023-09-02 16:28 | disposition home or self-care (01) ==
PROVIDERS: Emergency Provider Emergency Medicine; PCP Family Medicine; Visit Provider Emergency Medicine
DX: S60.222A Contusion of left hand, initial encounter (principal); S63.502A Unspecified sprain of left wrist, initial encounter; Z79.82 Long term (current) use of aspirin; Z79.899 Other long term (current) drug therapy; Z86.73 Personal history of transient ischemic attack (TIA), and cerebral infarction without residual deficits; Z87.891 Personal history of nicotine dependence; W00.9XXA Unspecified fall due to ice and snow, initial encounter
CPT/HCPCS: 73110; 99283

== ENCOUNTER → 2023-09-16 | Outpatient (CLI) | payer MEDICARE, BC, SELFPAY ==
[2023-09-16 15:02] LABS: Absolute Lymphocyte Count 2.39 X10^3/uL (0.83-4.51); Absolute Neutrophil Count 4.6 X10^3/uL (2.0-7.7); Basophil# 0.05 X10^3/uL; Basophil% 0.7 % (0-1); Eosinophil# 0.11 X10^3/uL; Eosinophils% 1.5 % (0-5); Hematocrit 44.1 % (37-47); Hemoglobin 14.1 g/dL (12.0-15.0); Lymphocyte # 2.39 X10^3/ul (0.83-4.51); Lymphocyte % 31.8 % (19-41); Mean Corpuscular Hgb 26.1 pg (27.0-32.0); Mean Corpuscular Volume 81.5 fL (81-99); Mean Platelet Vol. 10.2 fl (6.2-12.0); Monocyte# 0.34 X10^3/uL; Monocyte% 4.5 % (0-10); NRBC Flagged by Analyzer 0 % (0-5); Neutrophil # 4.62 X10^3/uL (2.7-7.7); Neutrophil % 61.4 % (47-70); Platelet Count 266 K/mm3 (150-450); RBC Distribution Width SD 41.1 fl (35.1-43.9); Red Blood Count 5.41 M/mm3 (4.2-5.4); White Blood Count 7.5 K/mm3 (4.4-11.0)
[2023-09-16 15:20] LABS: ALB/GLOB Ratio 1.2 RATIO (0.9-2.4); AST(SGOT) 15 U/L (15-37); Alanine Aminotransfer ALT/SGPT 35 U/L (13-56); Albumin, Serum 4.1 g/dL (3.2-5.0); Alkaline Phosphatase 78 U/L (45-117); Anion Gap 2 (5-15); BUN 14 mg/dL (7-18); BUN/Creat Ratio 17.1 RATIO (10-20); Calcium,Total 9.1 mg/dL (8.5-10.1); Chloride 106 mmol/L (98-107); Cholesterol 270 mg/dL (200); Creatinine, Serum 0.82 mg/dL (0.55-1.02); EST Glomerular Filtration Rate 73 mL/min (>60); Est Glom Filt Rate - Afr Amer 89 mL/min (>60); Globulin 3.4 g/dL (2.2-4.2); Glucose 105 mg/dL (74-106); Hemoglobin A1c 5.9 % (3.8-5.6); High Density Lipoprotein 56 mg/dL; Potassium 3.5 mmol/L (3.5-5.1); Protein, Total 7.5 g/dL (6.4-8.2); Sodium Level 137 mmol/L (136-145); Triglycerides 132 mg/dL; Very Low Density Lipoprotein 26 mg/dL (5-40)
== END | disposition home or self-care (01) ==
LOC: MTLAB 12:35
PROVIDERS: PCP Family Medicine; Referring Provider Family Medicine; Visit Provider Family Medicine
DX: R73.03 Prediabetes (principal); I10 Essential (primary) hypertension; E78.5 Hyperlipidemia, unspecified
CPT/HCPCS: 36415; 80053; 80061; 83036; 85025

== ENCOUNTER → 2023-09-25 | Outpatient (CLI) | payer MEDICARE, BC, SELFPAY ==
--- NOTE | 2023-09-25 07:00 | BI_ITS ---
MAMMOGRAPHY - BILATERAL SCREENING REASON FOR EXAM: Female, 72 years old. Routine annual screening examination. PERTINENT HISTORY: Non-contributory. TECHNIQUE: Digital bilateral breast igor (3D mammographic acquisition) in the CC and MLO projections. 2-D mediolateral oblique (MLO) and craniocaudad (CC) views of both breasts were obtained. CAD: Full Field Digital Mammography with Computer Added Detection was performed. COMPARISON: Comparison is made with prior study July 02, 2022. FINDINGS: Breast Composition: There are scattered areas of fibroglandular density. There are no dominant masses or suspicious calcifications. Stable small benign appearing bilateral axillary lymph nodes. No other significant abnormalities are identified. There has been no significant change since the prior study. BI/SCRN MAMM (CAD)W/IGOR BILAT IMPRESSION: Stable bilateral screening mammogram. Yearly follow-up mammogram recommended. (A) ASSESSMENT CATEGORY: BIRADS Category 2: Benign. A letter regarding these results will be sent to the patient by the facility within 30 days. Approximately 10% of breast cancers are not detected by mammography. A normal mammogram should not delay biopsy of a clinically suspicious abnormality. [id number] Electronically Signed: Rustam Pritchard MD at 8:44 EST ,
--- OUTSIDE RECORDS SUMMARY | 2023-09-25 07:01 | XMS RPT_ITS | CCD ---
Author Name Unknown Address [address] [place] [address] [address] [place] [address] Organization [facility] Care Team Providers Care Tire Worker Name Role Phone Sofia Santos Primary Care Provider [phone] Allergies Allergy Classification Reported Allergen(s) Allergy Type Date of Onset Reaction(s) Facility (2 sources) Erythromycin; Translations: [ERYTHROMYCIN] Drug Allergy 0 Diarrhea [facility] (2 sources) Minocycline; Translations: [MINOCYCLINE] Drug Allergy 4 Other: See Comments [facility] (2 sources) Mold Extract; Translations: [MOLD] Drug Allergy 7 [facility] Work Phone: (2 sources) Omeprazole; Translations: [OMEPRAZOLE] Drug Allergy 1 Other: See Comments [facility] Work Phone: (2 sources) tomato allergenic extract; Translations: [TOMATO] Drug Allergy 7 [facility] Work Phone: (2 sources) Wheat, Wheat Germ; Translations: [WHEAT, WHEAT GERM] Propensity to adverse reactions 7 [facility] Work Phone: Medications Current Medications Medication [...] 97.9 [degF] Dayana Tinsley PA-C Work Phone: [facility] 01-06-2022 08:12-0400 Body weight 86.27 kg Dayana Tinsley PA-C Work Phone: [facility] 01-06-2022 08:12-0400 Diastolic blood pressure 90 mm[Hg] Dayana Tinsley PA-C Work Phone: [facility] 01-06-2022 08:12-0400 Heart rate 122 /min Dayana Tinsley PA-C Work Phone: [facility] 01-06-2022 08:12-0400 Respiratory rate 20 /min Dayana Tinsley PA-C Work Phone: [facility] 01-06-2022 08:12-0400 SaO2% (BldA) [Mass fraction] 98 % Dayana Tinsley PA-C Work Phone: [facility] 01-06-2022 08:12-0400 Systolic blood pressure 132 mm[Hg] Dayana Tinsley PA-C Work Phone: [facility] Encounters Encounter Date Encounter Type Care Provider Facility Start: 08-13-2023 End: 08-13-2023 ambulatory SOFIA Jean Paul KEITA Facility:[facility] Start: 01-06-2022 End: 01-06-2022 Patient encounter procedure Dayana Tinsley PA-C Work Phone: [facility] Procedures Date Procedure Procedure Detail Performing Clinician Start: 08-18-2020 Mammography Dayana Tinsley PA-C Work Phone: Start: 10-15-2017 Colonoscopy Dayana Tinsley PA-C Work Phone: Start: 10-07-2017 Adult depression scr eening assessment Dayana Tinsley PA-C Work Phone: Plan of Treatment Date Care Activity Detail Author Start: 10-16-2027 Colonoscopy COLONOSCOPY [facility] Start: 10-16-2027 COLORECTAL CANCER SCREENING COLORECTAL CANCER SCREENING [facility] Start: 07-13-2026 LIPID SCREEN LIPID SCREEN [facility] Start: 02-13-2026 Urine microalbumin profile DTAP,TDAP,TD (4 - Td or Tdap) [facility] Start: 07-13-2024 DIABETES SCREEN DIABETES SCREEN [facility] Start: 04-11-2022 Influenza vaccination INFLUENZA (Season Ended) [facility] Start: 01-06-2022 End: 01-20-2022 Influenza virus A and B RNA and SARS-CoV-2 (COVID-19) N gene panel - Respiratory specimen by LOYDA with probe detection COVID WITH FLUA+B, ROUTINE Microbiology Routine Sinobronchitis Acute upper respiratory infection, unspecified Expected: 01/06/2022, Expires: 01/20/2022 [facility] Work Phone: Immunizations Immunization Date Immunization Notes Care Provider Homa gaytan 06-01-2020 influenza, high-dose , quadrivalent vaccine (FLUZONE HIGH DOSE QUADRIVALENT) Dayana Athy PA-C Work Phone: [facility] 04-24-2019 influenza, high dose seasonal, preservative-free Dayana Athy PA-C Work Phone: [facility] 04-24-2019 pneumococcal polysaccharide vaccine, 23 valent Dayana Athy PA-C Work Phone: [facility] 03-13-2018 pneumococcal conjuga te vaccine, 13 valent Dayana Athy PA-C Work Phone: [facility] 05-26-2017 influenza, seasonal, injectable Dayana Athy PA-C Work Phone: [facility] 02-14-2016 tetanus toxoid, redu susy diphtheria toxoid, and acellular pertussis vaccine, adsorbed Dayana Athy PA-C Work Phone: [facility] Work Phone: 02-04-2008 tetanus toxoid, redu susy diphtheria toxoid, and acellular pertussis vaccine, adsorbed Dayana Athy PA-C Work Phone: [facility] 09-30-1961 diphtheria, tetanus toxoids and pertussis vaccine Dayana Athy PA-C Work Phone: [facility] Work Phone: 11-13-1956 trivalent poliovirus vaccine, live, oral Dayana Athy PA-C Work Phone: [facility] Work Phone: 01-09-1956 trivalent poliovirus vaccine, live, oral Dayana Athy PA-C Work Phone: [facility] Work Phone: 09-27-1955 trivalent poliovirus vaccine, live, oral Dayana Athy PA-C Work Phone: [facility] Work Phone: Payers Date Payer Category Payer Medicare [id number] 2018 Unknown [employer] DICARE SUPPLEMENT [id number] 2018-Present [phone] [address] [place] [address] Indemnity [id number] 2017 Medicare MEDICARE MEDICAR E A AND B [id number] 2017-Present [phone] [address] [address] [place] [address] Medicare [id number] 2017 Medicare [id number] Social History Date Type Detail Facility Tobacco smoking stat [facility] Ex-smoker [facility] Start: 01-06-2022 Alcohol intake Current drinke r of alcohol (finding) [facility] Start: 05-11-2007 History SDOH Alcohol Comment rare [facility] Start: 1950 Sex Assigned At Not on file [facility] Start: 12-27-2021 End: 01-06-2022 Exposure to SARS-CoV-2 (event) Not sure [facility] Progress note 08-13-2023 Note Date & Type Note Facility 08-13-2023 Note HNO ID: [id number] Author: Joy Martins APRN.BILLET SHEARER Service: ? Author Type: Nurse Practitioner Type: [...] Diabetes Paternal Grandmother Coronary Artery Disease Mother [place], hyperlipidemia other (Other) Mother Gallbladder Hypertension Sister [...] Patient agreeable to treatment plan. Joy Martins APRN.[facility] History of Present illness Narrative 01-06-2022 Dayana Tinsley PA-C - 01/06/2022 9:16 AM EDT Note Date & Type Note Facility 01-06-2022 History of Presen t illness Narrative This note was created using [employer]. Subjective Doris Cortez is a 71 year [...] Diabetes Paternal Grandmother Coronary Artery Disease Mother [place], hyperlipidemia other (Other) Mother Gallbladder Hypertension Sister [...] Dayana Tinsley PA-C documented in this encounter [facility] History of Past illness Narrative 05-25-2014 Note Date & Type Note Facility documented as of this encounter (statuses as of 01/06/2022) [facility] Evaluation note Note Date & Type Note Facility documented in this encounter [facility] Health Concerns Infection Onset Date Last Indicated Resolved Time COVID-19 Rule-Out 01/06/2022 01/06/2022 Advance Directives No Advanced Directives Records FoundDocuments on File Type Date Recorded 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 [facility] [employer] [facility]. provides no warranty or guarantee of the accuracy or completeness of information in this document.
== END | disposition home or self-care (01) ==
LOC: OPBI 06:59
PROVIDERS: PCP Family Medicine; Referring Provider Family Medicine; Visit Provider Family Medicine
DX: Z12.31 Encounter for screening mammogram for malignant neoplasm of breast (principal)
CPT/HCPCS: 77063; 77067

== ENCOUNTER → 2023-10-13 | Outpatient (CLI) | payer MEDICARE, BC, SELFPAY ==
--- NOTE | 2023-10-13 12:38 | RAD_ITS ---
STUDY: X-RAY - LEFT KNEE REASON FOR EXAM: Female, 72 years old. PAIN / POST FALL TECHNIQUE: 4 views of the left knee. COMPARISON: None. FINDINGS: Normal visualized distal femur. Normal visualized proximal tibia and fibula. Normal proximal tibiofibular articulation. There is no demonstrated fracture. There is minimal degenerative arthrosis of the medial femorotibial compartment. Normal lateral femorotibial compartment. Normal patellofemoral articulation. There is a tiny joint effusion. The soft tissue structures are unremarkable. RAD/Knee 4 or More Views IMPRESSION: Minimal degenerative arthrosis of the medial femorotibial compartment. Tiny joint effusion. No demonstrated fracture. Electronically Signed: Slava Villarreal MD at 16:05 EST ,
--- OUTSIDE RECORDS SUMMARY | 2023-10-13 13:01 | XMS RPT_ITS | CCD ---
Author Name Unknown Address [address] [place] [address] [address] [place] [address] Organization [facility] Care Team Providers Care Retail Sales Merchandiser Name Role Phone Sofia Santos Primary Care Provider Allergies Allergy Classification Reported Allergen(s) Allergy Type Date of Onset Reaction(s) Facility (2 sources) Erythromycin; Translations: [ERYTHROMYCIN] Drug Allergy 0 Diarrhea [facility] (2 sources) Minocycline; Translations: [MINOCYCLINE] Drug Allergy 4 Other: See Comments [facility] (2 sources) Mold Extract; Translations: [MOLD] Drug Allergy 7 [facility] Work Phone: (2 sources) Omeprazole; Translations: [OMEPRAZOLE] Drug Allergy 1 Other: See Comments [facility] Work Phone: (2 sources) tomato allergenic extract; Translations: [TOMATO] Drug Allergy 7 [facility] Work Phone: (2 sources) Wheat, Wheat Germ; Translations: [WHEAT, WHEAT GERM] Propensity to adverse reactions 7 [facility] Work Phone: Medications Current Medications Medication Drug [...] 97.9 [degF] Dayana Tinsley PA-C Work Phone: [facility] 01-06-2022 08:12-0400 Body weight 86.27 kg Dayana Tinsley PA-C Work Phone: [facility] 01-06-2022 08:12-0400 Diastolic blood pressure 90 mm[Hg] Dayana Tinsley PA-C Work Phone: [facility] 01-06-2022 08:12-0400 Heart rate 122 /min Dayana Tinsley PA-C Work Phone: [facility] 01-06-2022 08:12-0400 Respiratory rate 20 /min Dayana Tinsley PA-C Work Phone: [facility] 01-06-2022 08:12-0400 SaO2% (BldA) [Mass fraction] 98 % Dayana Tinsley PA-C Work Phone: [facility] 01-06-2022 08:12-0400 Systolic blood pressure 132 mm[Hg] Dayana Tinsley PA-C Work Phone: [facility] Encounters Encounter Date Encounter Type Care Provider Facility Start: 08-13-2023 End: 08-13-2023 ambulatory SOFIA Jean Paul KEITA Facility:[facility] Start: 01-06-2022 End: 01-06-2022 Patient encounter procedure Dayana Tinsley PA-C Work Phone: [facility] Procedures Date Procedure Procedure Detail Performing Clinician Start: 08-18-2020 Mammography Dayana Tinsley PA-C Work Phone: Start: 10-15-2017 Colonoscopy Dayana Tinsley PA-C Work Phone: Start: 10-07-2017 Adult depression scr eening assessment Dayana Tinsley PA-C Work Phone: Plan of Treatment Date Care Activity Detail Author Start: 10-16-2027 Colonoscopy COLONOSCOPY [facility] Start: 10-16-2027 COLORECTAL CANCER SCREENING COLORECTAL CANCER SCREENING [facility] Start: 07-13-2026 LIPID SCREEN LIPID SCREEN [facility] Start: 02-13-2026 Urine microalbumin profile DTAP,TDAP,TD (4 - Td or Tdap) [facility] Start: 07-13-2024 DIABETES SCREEN DIABETES SCREEN [facility] Start: 04-11-2022 [facility] Start: 01-06-2022 End: 01-20-2022 Influenza virus A and B RNA and SARS-CoV-2 (COVID-19) N gene panel - Respiratory specimen by LOYDA with probe detection COVID WITH FLUA+B, ROUTINE Microbiology Routine Sinobronchitis Acute upper respiratory infection, unspecified Expected: 01/06/2022, Expires: 01/20/2022 [facility] Work Phone: Immunizations Immunization Date Immunization Notes Care Provider Homa gaytan 06-01-2020 influenza, high-dose , quadrivalent vaccine (FLUZONE HIGH DOSE QUADRIVALENT) Dayana Athy PA-C Work Phone: [facility] 04-24-2019 influenza, high dose seasonal, preservative-free Dayana Athy PA-C Work Phone: [facility] 04-24-2019 pneumococcal polysaccharide vaccine, 23 valent Dayana Athy PA-C Work Phone: [facility] 03-13-2018 pneumococcal conjuga te vaccine, 13 valent Dayana Athy PA-C Work Phone: [facility] 05-26-2017 influenza, seasonal, injectable Dayana Athy PA-C Work Phone: [facility] 02-14-2016 tetanus toxoid, redu susy diphtheria toxoid, and acellular pertussis vaccine, adsorbed Dayana Athy PA-C Work Phone: [facility] Work Phone: 02-04-2008 tetanus toxoid, redu susy diphtheria toxoid, and acellular pertussis vaccine, adsorbed Dayana Athy PA-C Work Phone: [facility] 09-30-1961 diphtheria, tetanus toxoids and pertussis vaccine Dayana Athy PA-C Work Phone: [facility] Work Phone: 11-13-1956 trivalent poliovirus vaccine, live, oral Dayana Athy PA-C Work Phone: [facility] Work Phone: 01-09-1956 trivalent poliovirus vaccine, live, oral Dayana Athy PA-C Work Phone: [facility] Work Phone: 09-27-1955 trivalent poliovirus vaccine, live, oral Dayana Athy PA-C Work Phone: [facility] Work Phone: Payers Date Payer Category Payer Medicare [id number] 2018 Unknown [employer] DICARE SUPPLEMENT [id number] 2018-Present [phone] [address] [place] [address] Indemnity [id number] 2017 Medicare MEDICARE MEDICAR E A AND B [id number] 2017-Present [phone] [address] [address] [place] [address] Medicare [id number] 2017 Medicare [id number] Social History Date Type Detail Facility Tobacco smoking stat [facility] Ex-smoker [facility] Start: 01-06-2022 Alcohol intake Current drinke r of alcohol (finding) [facility] Start: 05-11-2007 History SDOH Alcohol Comment rare [facility] Start: 1950 Sex Assigned At Not on file [facility] Start: 12-27-2021 End: 01-06-2022 Exposure to SARS-CoV-2 (event) Not sure [facility] Progress note 08-13-2023 Note Date & Type Note Facility 08-13-2023 Note HNO ID: [id number] Author: Joy Martins APRN.BOX [employer]ER Service: ? Author Type: Nurse Practitioner Type: [...] Diabetes Paternal Grandmother Coronary Artery Disease Mother [place], hyperlipidemia other (Other) Mother Gallbladder Hypertension Sister [...] Patient agreeable to treatment plan. Joy Martins APRN.[facility] History of Present illness Narrative 01-06-2022 Dayana Tinsley PA-C - 01/06/2022 9:16 AM EDT Note Date & Type Note Facility 01-06-2022 History of Presen t illness Narrative This note was created using [employer]. Subjective Doris Cortez is a 71 year [...] Diabetes Paternal Grandmother Coronary Artery Disease Mother [place], hyperlipidemia other (Other) Mother Gallbladder Hypertension Sister [...] Dayana Tinsley PA-C documented in this encounter [facility] History of Past illness Narrative 05-25-2014 Note Date & Type Note Facility documented as of this encounter (statuses as of 01/06/2022) [facility] Evaluation note Note Date & Type Note Facility documented in this encounter [facility] Health Concerns Infection Onset Date Last Indicated Resolved Time COVID-19 Rule-Out 01/06/2022 01/06/2022 Advance Directives No Advanced Directives Records FoundDocuments on File Type Date Recorded 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 [facility] [employer] [facility]. provides no warranty or guarantee of the accuracy or completeness of information in this document.
== END | disposition home or self-care (01) ==
PROVIDERS: PCP Family Medicine; Referring Provider Nurse Practitioner Family; Visit Provider Nurse Practitioner Family
DX: M25.562 Pain in left knee (principal)
CPT/HCPCS: 73564

== ENCOUNTER 2023-10-16 04:11 | Emergency (ER) | payer MEDICARE, BC, SELFPAY ==
[2023-10-16 04:11] VITALS: BP 164/113; PULSE 105; RESP 18; TEMP 36; O2SAT 96; BMI 33.8
--- NOTE | 2023-10-16 04:27 | EDS_ITS ---
HPI History of Present Illness Chief Complaint: Lower Extremity Injury Informant: patient and spouse/S.O. Narrative Narrative: Patient presents with acute left knee pain. She injured it. She presents around 4 AM after she got up to use the bathroom and felt a pop in it at 1 point when she was either moving it or putting weight on it, she does not think she twisted it or fell, but the pain is severe, it is more swollen than it was before, and she cannot walk on it. She states initially the injury occurred 11 days ago, where she slipped and fell and shows me an abrasion near the tibial tuberosity where she smacked it against a surface, she had swelling fairly quickly and it remained so. She saw her doctor and had some x-rays that were read as negative for fracture, and then this occurred tonight. She denies pain or swelling elsewhere. She denies any fevers or chills. She takes baby aspirin daily, no anticoagulants or other antiplatelets. She denies any discoloration on the skin anywhere at any point time except for the abrasion that she pointed to which is now healed. [facility] Medical History Arthritis Former smoker Gastric reflux Heartburn High cholesterol History of echocardiogram History of hiatal hernia History of IBS History of renal disease Hypertension TIA (transient ischemic attack) Wears glasses Home Medications aspirin 81 mg tablet,delayed release 81 mg PO DAILY 03/24/23 [History Last Taken Unknown] lisinopril 5 mg tablet 5 mg PO DAILY 03/24/23 [History Last Taken 04/01/23 05:30] omeprazole 20 mg capsule,delayed release 20 mg PO DAILY PRN gerd 03/24/23 [History Last Taken Unknown] rosuvastatin 10 mg tablet 10 mg PO .3x/week 03/24/23 [History Last Taken Unknown] hydrocodone-acetaminophen 5-325mg 5mg-325mg 1 tab PO Q6H PRN PRN Pain 3 days #12 TABLETS 10/16/23 [Rx Last Taken Unknown] Allergy/AdvReac Type Severity Reaction Status Date / Time tomato Allergy Hives Verified 10/16/23 04:17 wheat Allergy Other Verified 10/16/23 04:17 erythromycin base AdvReac Diarrhea Verified 10/16/23 04:17 Family History Mother Diabetes Heart disease Kidney disease Father Heart disease CVA (cerebral vascular accident) Surgical History History of arthroscopic surgery of shoulder History of extraction of renal calculus History of tonsillectomy History of tubal ligation Social History Smoking Status: Former smoker alcohol intake: never substance use type: does not use ROS ROS ED Constitutional Constitutional ED: Denies chills or fever(s) Musculoskeletal Musculoskeletal: Reports extremity pain; Denies neck pain Integumentary Denies Abrasions, rash or wounds Neurologic Neurologic: Denies paresthesias or weakness EXAM Physical Exam Const Vital Signs: 10/16/23 04:11 Temperature 96.8 F L Temperature Source Temporal Pulse Rate 105 H Respiratory Rate 18 Blood Pressure 164/113 H Blood Pressure Mean 130 Pulse Ox 96 Oxygen Delivery Method Room Air Positive well nourished and well developed General Appearance ED: well developed and NAD Neck full ROM and supple Back/Spine normal ROM and normal to inspection Extremity Extremity Narrative: Obvious swelling to the left anterior knee compared with the right, there appears to be a small effusion. There is no excessive warmth or erythema anywhere in the knee to suggest an intra-articular significant inflammatory process or infection. There is a healing abrasion just distal to the patella anteriorly. Extremely limited range of motion, she does have short arc range of motion without significant discomfort but she cannot fully extend although the extensor mechanism is intact. She is almost in full extension and medial and lateral collateral ligaments are tight with stressing and do not yield significant pain. Similarly, she can actively bend but only to about 15 or 20 degrees, and attempting to stress the ACL and PCL which is extremely limited does not yield significant discomfort nor laxity. Neurovascularly intact distally. No significant bony tenderness. Neuro oriented x3, no focal motor deficits and no sensory deficits noted Sensorium / Orientation: alert Psych mental status grossly normal and thought process normal Skin no wounds Rashes: no rashes MDM MDM MDM Narrative Medical decision making narrative: As I discussed with the patient, since she had a blunt trauma to this 1.5 weeks ago, it seems more consistent with a traumatic hemarthrosis that was giving her the prior trouble and pain, not to mention she could have had sort of a bone bruise that could also have been sore. She states she was taking a lot of Tylenol and ibuprofen for this and called her doctor yesterday to try to get something stronger but then tells me that she does not want narcotics. We had a discussion about that since that really is the only thing available that is nonprescription, so we offered a low-dose of an oral narcotic such as a half of a Vicodin tablet which she was amenable to and was given to her here. We also discussed the possibilities of what could be wrong now. The list includes worsening hemarthrosis, or a separate injury such as meniscus injury, or other internal knee derangement. I basically offered her analgesics, Santos wrap, and crutches and close outpatient follow-up. She was frustrated that that is all I could provide, but at 4 AM all I could really do here in addition is repeat her x-rays, which I was happy to do. I am not able to get 4 views because she can barely move it, so we obtained 2 views. On my interpretation shows no acute fracture but consistent with a small effusion. Radiology in agreement. I empathized for her knee pain, as these can be difficult to explain immediately afterwards especially when it is difficult to move and get a good exam, and consoled her, explaining that sometimes these things take time to figure out. We did discuss arthrocentesis, however if this is all due to hemarthrosis, performing an arthrocentesis could worsen her problem causing more bleeding so I do not recommend it and she agrees. Follow-up when the effusion is down is important, and if the pain/effusion persist she may need an MRI or further evaluation. She is discharged with a prescription for analgesics and referral to orthopedics. History & Record Review Additional record(s) reviewed:: Other (Knee x-rays from 3 days ago, tiny joint effusion and no fractures per radiology) Radiography Diagnostic Testing: Clinical Impression(s) from Imaging Studies Knee X-Ray 10/16/23 04:26 IMPRESSION: Mild degenerative changes of the knee without obvious fracture. Electronically Signed: Milagro Linn MD at 4:51 EST , STUDY: X-RAY - LEFT KNEE REASON FOR EXAM: Female, 72 years old patient with knee injury. TECHNIQUE: AP and lateral view(s) of the knee. COMPARISON: None. FINDINGS: Normal visualized distal femur. Normal visualized proximal tibia and fibula. Normal proximal tibiofibular articulation. There is no demonstrated fracture. There is mild degenerative arthrosis of the medial femorotibial compartment. Normal lateral femorotibial compartment. Normal patellofemoral articulation. There is degenerative enthesophyte arising from the anterior patella. There is a soft tissue prominence in the suprapatellar region suggesting a small volume joint effusion. The soft tissue structures are unremarkable. RAD/Knee 1 or 2 Views IMPRESSION: Mild degenerative changes of the knee without obvious fracture. Electronically Signed: Milagro Linn MD at 4:51 EST Discharge Plan Triage Chief Complaint: Lower Extremity Injury ED Provider: Austin Pop Dx/Rx/DC Orders Clinical Impression: Effusion of left knee, Injury of left knee Instructions: ED Meniscal Injury Knee Poss, ED Knee Effusion Prescriptions: New hydrocodone-acetaminophen [hydrocodone-acetaminophen] 5-325 mg tablet 1 tab PO Q6H PRN PRN (Reason: Pain) 3 Days Qty: 12 0RF No Action lisinopril 5 mg tablet 5 mg PO DAILY omeprazole 20 mg capsule,delayed release(DR/EC) 20 mg PO DAILY PRN (Reason: gerd) aspirin 81 mg tablet,delayed release (DR/EC) 81 mg PO DAILY rosuvastatin 10 mg tablet 10 mg PO .3x/week Stand Alone Forms: ED Work / School Excuse Primary Care Provider: Sofia Santos Referrals: Sofia Santos MD [Primary Care Provider] - Nelson David DO [Med Staff - Active Staff] - 5-7 Days (call for ortho appt) Disposition Disposition: Home, Self Care
[2023-10-16] MEDS: HYDROcodone Bitartrate/Apap 5/325 Tablet PO (04:31)
[2023-10-16 05:38] VITALS: BP 174/70; PULSE 78; RESP 18; TEMP 36.6; O2SAT 98
== END 2023-10-16 05:39 | disposition home or self-care (01) ==
PROVIDERS: Emergency Provider Emergency Medicine; PCP Family Medicine; Visit Provider Emergency Medicine
DX: M25.462 Effusion, left knee (principal); S89.92XA Unspecified injury of left lower leg, initial encounter; Z87.891 Personal history of nicotine dependence; Z79.82 Long term (current) use of aspirin; Z79.899 Other long term (current) drug therapy; X58.XXXA Exposure to other specified factors, initial encounter
CPT/HCPCS: 73560; 99283

== ENCOUNTER → 2024-09-21 | Outpatient (CLI) | payer MEDICARE, BC, SELFPAY ==
[2024-09-21 12:35] LABS: Absolute Lymphocyte Count 1.98 X10^3/uL (0.83-4.51); Basophil# 0.05 X10^3/uL; Basophil% 0.8 % (0-1); Eosinophil# 0.15 X10^3/uL; Eosinophils% 2.3 % (0-5); Hematocrit 45.5 % (37-47); Hemoglobin 14.4 g/dL (12.0-15.0); Lymphocyte # 1.98 X10^3/ul (0.83-4.51); Lymphocyte % 30.3 % (19-41); Mean Corp Hgb Conc 31.6 g/dL (32-36); Mean Corpuscular Hgb 25.8 pg (27.0-32.0); Mean Corpuscular Volume 81.5 fL (81-99); Mean Platelet Vol. 10.3 fl (6.2-12.0); Monocyte# 0.33 X10^3/uL; Monocyte% 5.1 % (0-10); NRBC Flagged by Analyzer 0 % (0-5); Neutrophil % 61.2 % (47-70); Platelet Count 267 K/mm3 (150-450); RBC Distribution Width CV 13.8 % (11.6-14.6); RBC Distribution Width SD 40.4 fl (35.1-43.9); Red Blood Count 5.58 M/mm3 (4.2-5.4); White Blood Count 6.5 K/mm3 (4.4-11.0)
[2024-09-21 12:42] LABS: ALB/GLOB Ratio 1.1 RATIO (0.9-2.4); AST(SGOT) 16 U/L (15-37); Alanine Aminotransfer ALT/SGPT 32 U/L (13-56); Albumin, Serum 4.1 g/dL (3.2-5.0); Alkaline Phosphatase 69 U/L (45-117); Anion Gap 5 (5-15); BUN 13 mg/dL (7-18); BUN/Creat Ratio 14.5 RATIO (10-20); Calcium,Total 9.5 mg/dL (8.5-10.1); Chloride 107 mmol/L (98-107); Cholesterol 181 mg/dL (200); EST Glomerular Filtration Rate 66 mL/min (>60); Est Glom Filt Rate - Afr Amer 79 mL/min (>60); Globulin 3.6 g/dL (2.2-4.2); Glucose 120 mg/dL (74-106); High Density Lipoprotein 61 mg/dL; Potassium 4.1 mmol/L (3.5-5.1); Protein, Total 7.7 g/dL (6.4-8.2); Sodium Level 141 mmol/L (136-145); Triglycerides 143 mg/dL; Very Low Density Lipoprotein 29 mg/dL (5-40)
== END | disposition home or self-care (01) ==
LOC: BFHLAB 10:55
PROVIDERS: PCP Family Medicine; Visit Provider Family Medicine
DX: I10 Essential (primary) hypertension (principal); R73.03 Prediabetes; E78.5 Hyperlipidemia, unspecified
CPT/HCPCS: 36415; 80053; 80061; 85025

== ENCOUNTER → 2024-09-27 | Outpatient (CLI) | payer MEDICARE, BC, SELFPAY ==
--- NOTE | 2024-09-27 12:40 | BI_ITS ---
PROCEDURE: SCRN MAMM (CAD)W/IGOR BILAT REASON FOR EXAM: F, Age 73 y/o, no family history. Routine mammogram. TECHNIQUE: Bilateral screening digital breast tomosynthesis with 2D and 3D images. Computer aided detection. COMPARISON: Prior exam(s) dating back to September 25, 2023.. FINDINGS: There are scattered areas of fibroglandular density. Stable small benign- appearing bilateral axillary lymph nodes. No suspicious masses, areas of developing architectural distortion, or suspicious calcifications. BI/SCRN MAMM (CAD)W/IGOR BILAT IMPRESSION: BI-RADS 2: BENIGN. RECOMMEND ANNUAL MAMMOGRAPHIC SCREENING. Follow-up code: Routine Follow-up The patient will be notified of the results by letter. Reading Location: [id number]
== END | disposition home or self-care (01) ==
LOC: OPBI 12:38
PROVIDERS: PCP Family Medicine; Referring Provider Family Medicine; Visit Provider Family Medicine
DX: Z12.31 Encounter for screening mammogram for malignant neoplasm of breast (principal)
CPT/HCPCS: 77063; 77067